=== PATIENT | male | born 1960 | race Caucasian/White ===

== ENCOUNTER → 2016-10-24 | Outpatient (CLI) | payer MEDICARE, OTHER ==
[~2016-10-24] MED LIST: BACT800T5 PO; BUSP30TA PO; BUSP5 PO; CEPH-460 PO; CLON0.5T PO; CLON1TAB PO; DOCU1CAP39 PO; FLUO40CA PO; HYDR-3583 PO; HYDR10SO PO; HYDR7.5T76 PO; LISI-360 PO; LISI-515 PO; PERC10TA27 PO; PERC7.5T13 PO; PROZ40CA PO; ROPI0.5T PO; ZIPR40 PO
--- NOTE | 2016-10-25 09:38 | RSPPFT ---
DATE OF PROCEDURE: 10/24/16 COMMENTS: Spirometry with FVC of 4.3 predicted 47, FEV1 of 2.8 predicted 3.8, FEV1/FVC ratio at 66% predicted 80%. IMPRESSION: On the basis of the above, patient has an obstructive lung defect and post-bronchodilator values have not been measured.
== END ==
LOC: HRSP 08:57
PROVIDERS: ATTEND Thoracic Surgery (Cardiothoracic Vascular Surgery)
DX: J98.4 Other disorders of lung (principal)
CPT/HCPCS: 94010

== ENCOUNTER 2016-11-06 11:22 | Inpatient (IN) | payer MEDICARE, MEDICAID ==
[~2016-11-06] VITALS: Ht 180.3 cm; Wt 68.5 kg
[~2016-11-06 11:22] MED LIST changes: -BACT800T5 PO; -BUSP5 PO; -CEPH-460 PO; -CLON1TAB PO; -DOCU1CAP39 PO; -HYDR10SO PO; -HYDR7.5T76 PO; -LISI-360 PO; -PERC10TA27 PO; -PERC7.5T13 PO; -PROZ40CA PO; -ROPI0.5T PO; -ZIPR40 PO
[2016-11-06] MEDS ORDERED: ROPI0.5T PO (11:51)
[2016-11-12] VITALS (7 sets, daily range): BP systolic 114–167; BP diastolic 61–81; PULSE 68–84; RESP 16–18; TEMP 97.6–98.6; O2SAT 96–98
[2016-11-12] MEDS ORDERED: METOPROLOL TARTRATE 25 MG TAB PO PRN (06:00)
[2016-11-12] MEDS ORDERED: SODIUM CHLORID 0.9% 500 ML IV SCH (06:00)
[2016-11-12] MEDS ORDERED: LACTATED RINGER'S 1000 ML IV SCH (06:00)
[2016-11-12] MEDS ORDERED: INSULIN HUMAN REGULAR 1,000 UNITS/10 ML VIAL SQ PRN (06:00)
[2016-11-12] MEDS ORDERED: PERC10TA27 PO (06:16)
[2016-11-12 07:02] LABS: AUTOMATED NEUTROPHIL # 1.5 TH/MM3 (1.8-7.7); BASOPHIL % 0.5 % (0.0-2.0); EOSINOPHIL # 0.2 TH/MM3 (0-0.4); EOSINOPHIL % 5.9 % (0.0-4.0); HEMATOCRIT 37.1 % (39.0-51.0); LYMPHOCYTE # 1.4 TH/MM3 (1.0-4.8); MEAN CELL VOLUME 93.9 FL (80.0-100.0); MEAN CORPUSCULAR HEMOGLOBIN 33.1 PG (27.0-34.0); MEAN CORPUSCULAR HGB CONC 35.2 % (32.0-36.0); MONO % 11.9 % (0.0-8.0); NEUT % 42.7 % (16.0-70.0); PLATELET COUNT 75 TH/MM3 (150-450); RED BLOOD COUNT 3.95 MIL/MM3 (4.50-5.90); RED CELL DISTRIBUTION WIDTH 13.7 % (11.6-17.2); WHITE BLOOD COUNT 3.6 TH/MM3 (4.0-11.0)
[2016-11-12 07:08] LABS: HEMO FLAGS AUTO DIFF
[2016-11-12] MEDS ORDERED: DICLOFENAC SODIUM 37.5 MG/ML VIAL IV PUSH ONE (07:13)
[2016-11-12] MEDS ORDERED: MIDAZOLAM HCL 2 MG/2 ML VIAL ONE (07:13)
[2016-11-12] MEDS ORDERED: fentaNYL CITRATE 250 MCG/5 ML AMP ONE (07:13)
[2016-11-12] MEDS ORDERED: HYDROmorphone HCL PF 2 MG/ML VIAL ONE (07:14)
[2016-11-12] MEDS ORDERED: DEXAMETHASONE SOD PHOS 4 MG/ML VIAL ONE (07:14)
[2016-11-12] MEDS ORDERED: ceFAZolin 2 GM PREMIX 50 ML ONE (07:33)
[2016-11-12 07:44] LABS: PLATELET ESTIMATE SMEAR LOW (NORMAL); PLATELET MORPHOLOGY NORMAL (NORMAL); SCAN/DIFF AUTO DIFF CONFIRMED
[2016-11-12] MEDS ORDERED: BUPIVACAINE LIPOSO PF 1.3% INJ 20 ML, DEXAMETHASONE INJ 4 MG in SODIUM CHLORIDE 0.9% IN... PERIART SCH (08:00)
[2016-11-12] MEDS ORDERED: PROPOFOL 200 MG/20 ML AMP IV ONE (11:10)
[2016-11-12] MEDS ORDERED: ePHEDrine/NS 50 MG/5 ML SYR IV ONE (11:10)
[2016-11-12] MEDS ORDERED: PHENYLEPH/NS 1000 MCG/10 ML SYR IV ONE ×2 (11:10→12:00)
[2016-11-12] MEDS ORDERED: ONDANSETRON HCL 4 MG/2 ML VIAL IV PUSH ONE (11:10)
[2016-11-12] MEDS ORDERED: LACTATED RINGER'S 1000 ML INJ 1,000 ML IV ONE (11:10)
[2016-11-12] MEDS ORDERED: NEOSTIGMINE 3 MG/3 ML SYR IV ONE (11:10)
[2016-11-12] MEDS ORDERED: NORMOSOL R INJ 1,000 ML IV ONE (11:10)
[2016-11-12] MEDS ORDERED: BUPIVACAINE HCL PF 0.5% 30 ML VIAL INFIL ONE (11:51)
[2016-11-12] MEDS ORDERED: BUPIVACAINE HCL PF 0.5% 30 ML VIAL ONE (11:52)
[2016-11-12] MEDS ORDERED: ceFAZolin INJ 1,000 MG VIAL IV ONE (12:15)
[2016-11-12] MEDS ORDERED: ONDANSETRON HCL 4 MG/2 ML VIAL IV PUSH PRN (12:30)
[2016-11-12] MEDS ORDERED: SODIUM CHLORIDE 0.9% FLUSH 5 ML FLUSH IV FLUSH PRN (12:30)
[2016-11-12] MEDS ORDERED: MAGNESIUM HYDROXIDE SUSP 30 ML CUP PO PRN (12:30)
[2016-11-12] MEDS ORDERED: ACETAMINOPHEN 325 MG TAB PO PRN (12:30)
[2016-11-12] MEDS ORDERED: RESP: ALBUTEROL 2.5 MG/3 ML NEB (PRN) NEB (12:30)
[2016-11-12] MEDS ORDERED: Post-op Orders (for Pharmacy) MISC OTHER ONE (13:00)
[2016-11-12] MEDS ORDERED: DO NOT ADM ANY ANTICOAGULANT DRUGS XX PRN (13:08)
[2016-11-12] MEDS: ACETAMINOPHEN 1000 MG/100 ML VIAL IV SCH ×2 (13:30→19:51)
[2016-11-12] MEDS: KETOROLAC TROMETHAMINE 30 MG/ML (IVP) VIAL IV PUSH SCH ×2 (13:35→19:51)
--- NOTE | 2016-11-12 13:49 | RADRPT ---
EXAM DATE/TIME: 11/12/2016 13:25 [facility] COMPARISON: CT PULMONARY ANGIOGRAM, August 03, 2016, 18:32. CHEST EXPIRATION ONLY, August 06, 2016, 15:17. INDICATIONS : Post-op left thoracotomy. MEDICAL HISTORY : Hypertension. SURGICAL HISTORY : Fusion, cervical. Cholecystectomy. Bilateral knee arthroscopy. ENCOUNTER: Initial ACUITY: 1 day PAIN SCORE: 8/10 LOCATION: chest FINDINGS: The patient is apparently postoperative left thoracotomy with elevation left hemidiaphragm and a smal l amount of subcutaneous emphysema along the left lateral chest. Tubular structure overlies the left hemithorax extending towards the upper lobe apex. Right lung is clear and left lung reveals no eviden ce of pneumothorax and is otherwise clear CONCLUSION: Status post left thoracotomy elevation left hemidiaphragm partial lobectomy with tube in place overly ing the left hemithorax and no pneumothorax appreciated Yann Leon MD on November 12, 2016 at 13:46 Board Certified Radiologist. This report was verified electronically.
[2016-11-12] MEDS: oxyCODONE/ACETAMINOPHEN 5 MG/325 MG TAB PO PRN ×3 (15:11→20:57)
--- NOTE | 2016-11-12 15:19 | PD.OP ---
cc: Ammon Barragan MD; Rekha Sanchez MD Operative Report Date of Surgery: Nov 12, 2016 Preoperative Diagnosis: Postoperative Diagnosis: Procedure: 1. Left Posterolateral Muscle Sparing Thoracotomy 2. Left upper Lobectomy 3. Mediastinal Lymph Node Dissection 4. Intercostal Nerve Block 5. On-Q Pain Pump Placement . Surgeon: Rekha Sanchez Efficiency Miner Blasting(s): Merly Shelby Operation and Findings: PREOPERATIVE DIAGNOSIS 1. Left Upper Lobe Lung Cancer 2. Chronic Nicotine Use POSTOPERATIVE DIAGNOSIS same PROCEDURES 1. Left Posterolateral Muscle Sparing Thoracotomy 2. Left upper Lobectomy 3. Mediastinal Lymph Node Dissection 4. Intercostal Nerve Block 5. On-Q Pain Pump Placement SURGEON Rekha Sanchez MD BOATING SAFETY OFFICER ALMA Quintana RNFA ANESTHESIA General endotracheal. OBSTETRICAL ANESTHESIOLOGIST GAYATHRI Everett MD OPERATIVE TIME Please see record. COMPLICATIONS None. INDICATION FOR PROCEDURE The patient is a 55 yo gentleman with JOSAFAT NSCLC presenting for lobectomy. DESCRIPTION OF PROCEDURE The patient was brought to the operating suite and placed in supine position. Following satisfactory induction of general double-lumen endotracheal anesthesia , the patient was placed in the right lateral decubitus position. The left chest and surrounding area was then prepped and draped in the usual sterile fashion. Initial attempts were made to perform the procedure robotically and camera and 3 additional ports were placed in the 9th ICS. However, there was some issues with the robotic bipolar cautery which could not be resolved and therefore plans were made to convert to a thoracotomy. A standard muscle- sparing posterolateral thoracotomy was performed and the serratus anterior muscle spared. The pleural space was entered. Exploration of the chest revealed large mass in the left upper lobe. Additionally, the tissue was very inflamed and indurated. The inferior pulmonary ligament was divided. The pulmonary arterial supply to the upper lobe was identified, dissected free and divided as was the pulmonary venous supply. The bronchus was then dissected free, clamped and the remaining lung was insufflated without any difficulty. Lymph node dissections of level 5, 6, 7, 8, 9 and 10 were performed along with the course of this removal. Some of these were retained with the specimen. Specimen was removed from the chest. At this point the closure was undertaken. A 24- Taiwanese Morgan drain was placed. Intercostal nerve block was performed at the level of the incision and 3 rib spaces above and below using Exparel with Decadron solution. The pericostal space was approximated with interrupted #1 Vicryl sutures in a pericostal fashion. Two-parallel catheters of On-Q pain pump were placed, one anteriorly and the other posteriorly. The serratus fascia and Latissimus dorsi were closed with running 0-Vicryl and the remaining wounds closed with 3-0, and 4-0 Monocryl. The patient tolerated the procedure well and postoperatively went to the PACU in stable condition. Rekha Sanchez MD Nov 12, 2016 15:19
[2016-11-12] MEDS: SODIUM CHLORIDE 0.9% FLUSH 5 ML FLUSH IV FLUSH SCH (19:52)
[2016-11-12] MEDS: PANTOPRAZOLE SOD 40 MG DELAYED RELEASE TAB PO SCH (19:53)
[2016-11-12] MEDS: DOCUSATE CALCIUM 240 MG CAP PO SCH (19:53)
[2016-11-13] VITALS (22 sets, daily range): BP systolic 106–167; BP diastolic 60–77; PULSE 61–103; RESP 16–28; TEMP 97.6–98.4; O2SAT 95–97
[2016-11-13] MEDS: oxyCODONE/ACETAMINOPHEN 5 MG/325 MG TAB PO PRN ×8 (00:08→21:31)
[2016-11-13] MEDS: ACETAMINOPHEN 1000 MG/100 ML VIAL IV SCH ×2 (01:41→09:23)
[2016-11-13] MEDS: KETOROLAC TROMETHAMINE 30 MG/ML (IVP) VIAL IV PUSH SCH ×2 (01:41→09:23)
[2016-11-13] MEDS: RESP: ALBUTEROL 2.5 MG/3 ML NEB (SCH) NEB ×4 (03:31→20:54)
--- NOTE | 2016-11-13 05:25 | RADRPT ---
EXAM DATE/TIME: 11/13/2016 04:29 [facility] COMPARISON: CHEST SINGLE AP, November 12, 2016, 13:25. INDICATIONS : Shortness of breath. MEDICAL HISTORY : Hypertension. SURGICAL HISTORY : Fusion, cervical. Cholecystectomy. Bilateral knee arthroscopy. ENCOUNTER: Subsequent ACUITY: 2 days PAIN SCORE: Non-responsive. LOCATION: Bilateral chest FINDINGS: Left chest tube remains in place. No pneumothorax. The lungs remain clear and well-aerated. Heart siz e is stable. No pleural effusion. No significant change compared to the prior study. CONCLUSION: No significant interval change. Jimbo An MD on November 13, 2016 at 5:23 Board Certified Radiologist. This report was verified electronically.
[2016-11-13 06:29] LABS: AUTOMATED NEUTROPHIL # 6.7 TH/MM3 (1.8-7.7); BASOPHIL % 0.1 % (0.0-2.0); HEMATOCRIT 38.2 % (39.0-51.0); LYMPH % 16.4 % (9.0-44.0); LYMPHOCYTE # 1.5 TH/MM3 (1.0-4.8); MEAN CELL VOLUME 95.1 FL (80.0-100.0); MEAN CORPUSCULAR HEMOGLOBIN 33.2 PG (27.0-34.0); MEAN CORPUSCULAR HGB CONC 34.9 % (32.0-36.0); MONO % 9.5 % (0.0-8.0); PLATELET COUNT 84 TH/MM3 (150-450); RED BLOOD COUNT 4.01 MIL/MM3 (4.50-5.90); RED CELL DISTRIBUTION WIDTH 13.8 % (11.6-17.2)
[2016-11-13 06:33] LABS: HEMO FLAGS AUTO DIFF
[2016-11-13 07:04] LABS: BICARBONATE 26.5 MEQ/L (21.0-32.0); POTASSIUM 4.4 MEQ/L (3.5-5.1)
[2016-11-13 07:53] LABS: SCAN/DIFF AUTO DIFF CONFIRMED
[2016-11-13 07:54] LABS: HOWELL-JOLLY BODIES PRESENT (NONE SEEN)
[2016-11-13] MEDS: SODIUM CHLORIDE 0.9% FLUSH 5 ML FLUSH IV FLUSH SCH ×2 (09:00→21:32)
[2016-11-13] MEDS: busPIRone HCL 10 MG TAB PO SCH ×2 (11:07→21:31)
[2016-11-13] MEDS: FLUoxetine HCL 20 MG CAP PO SCH (11:07)
--- NOTE | 2016-11-13 11:17 | PD.CAR.PN ---
CVT Progress Note CVT: POD #: 1 Subjective/Hospital Course: 55/ male left upper lobe CA, poorly diff squamous cell pt of Dr Kevin Barragan surgery: , Left Posterolateral Muscle Sparing Thoracotomy, Left upper Lobectomy, Mediastinal Lymph Node Dissection, On-Q Pain Pump Placement 11/12 PMH : tobacco abuse, anxiety depression, polysubstance abuse, schizophrenia , Hep C 11/13 pt on room air , had some serous leakage around chest tube site additional suture placed by Dr Sanchez chest tube to water seal / drained 520cc/ 12 hrs toradol added for pain consult PT Objective: GENERAL: SKIN: Warm and dry./ dressing in place to left chest / additional suture placed at CT site per Dr Sanchez HEAD: Normocephalic. EYES: No scleral icterus. No injection or drainage. NECK: Supple, trachea midline. No JVD or lymphadenopathy. CARDIOVASCULAR: Regular rate and rhythm without murmurs, gallops, or rubs. RESPIRATORY: diminished left upper lobe Breath sounds equal bilaterally. No accessory muscle use. GASTROINTESTINAL: Abdomen soft, non-tender, nondistended. MUSCULOSKELETAL: No cyanosis, or edema. BACK: Nontender without obvious deformity. No CVA tenderness. Vital Signs Date Time Temp Pulse Resp B/P Pulse Ox O2 Delivery O2 Flow Rate FiO2 11/13/16 07:15 97.6 65 20 126/66 97 11/13/16 06:00 66 11/13/16 04:00 98.0 74 16 135/62 97 11/13/16 04:00 70 11/13/16 02:00 61 11/13/16 00:00 62 11/13/16 00:00 98.1 64 16 106/60 97 11/12/16 22:00 75 11/12/16 20:00 84 11/12/16 20:00 98.6 84 16 118/68 96 11/12/16 18:00 78 11/12/16 17:00 71 11/12/16 16:00 72 11/12/16 15:00 97.6 78 18 114/61 97 11/12/16 14:15 97.8 79 17 122/72 98 Nasal Cannula 1.5 11/12/16 14:00 79 17 115/73 98 Nasal Cannula 2 126/60 11/12/16 13:45 75 15 118/72 99 Nasal Cannula 2 125/59 11/12/16 13:30 77 15 149/86 99 Nasal Cannula 2 135/66 11/12/16 13:10 97.6 85 15 129/90 100 Nasal Cannula 3 116/77 Labs: Laboratory Tests Test 11/13/16 05:51 White Blood Count 9.0 TH/MM3 (4.0-11.0) Red Blood Count 4.01 MIL/MM3 (4.50-5.90) Hemoglobin 13.3 GM/DL (13.0-17.0) Hematocrit 38.2 % (39.0-51.0) Mean Corpuscular Volume 95.1 FL (80.0-100.0) Mean Corpuscular Hemoglobin 33.2 PG (27.0-34.0) Mean Corpuscular Hemoglobin 34.9 % Concent (32.0-36.0) Red Cell Distribution Width 13.8 % (11.6-17.2) Platelet Count 84 TH/MM3 (150-450) Mean Platelet Volume 10.0 FL (7.0-11.0) Neutrophils (%) (Auto) 74.0 % (16.0-70.0) Lymphocytes (%) (Auto) 16.4 % (9.0-44.0) Monocytes (%) (Auto) 9.5 % (0.0-8.0) Eosinophils (%) (Auto) 0.0 % (0.0-4.0) Basophils (%) (Auto) 0.1 % (0.0-2.0) Neutrophils # (Auto) 6.7 TH/MM3 (1.8-7.7) Lymphocytes # (Auto) 1.5 TH/MM3 (1.0-4.8) Monocytes # (Auto) 0.9 TH/MM3 (0-0.9) Eosinophils # (Auto) 0.0 TH/MM3 (0-0.4) Basophils # (Auto) 0.0 TH/MM3 (0-0.2) CBC Comment AUTO DIFF Differential Comment AUTO DIFF CONFIRMED [place] Bodies PRESENT (NONE SEEN) Sodium Level 138 MEQ/L (136-145) Potassium Level 4.4 MEQ/L (3.5-5.1) Chloride Level 106 MEQ/L (98-107) Carbon Dioxide Level 26.5 MEQ/L (21.0-32.0) Anion Gap 6 MEQ/L (5-15) Blood Urea Nitrogen 18 MG/DL (7-18) Creatinine 0.84 MG/DL (0.60-1.30) Estimat Glomerular Filtration 95 ML/MIN (>89) Rate Random Glucose 102 MG/DL (74-106) Calcium Level 8.1 MG/DL (8.5-10.1) Result Diagram: 11/13/1651 11/13/1651 Telemetry: NSR (1) Substance abuse (2) Schizophrenia Plan: resume home meds (3) s/p left muscle sparing thoracotomy Plan: continue pulm toileting nebs, ezpap chest tube to water seal ambulate (4) Lung mass Plan: await path Herlinda Hu Nov 13, 2016 11:17
[2016-11-13] MEDS: LISINOPRIL 5 MG TAB PO SCH (11:44)
[2016-11-13] MEDS: clonazePAM 0.5 MG TAB PO PRN ×2 (12:26→22:39)
[2016-11-13] MEDS: PANTOPRAZOLE SOD 40 MG DELAYED RELEASE TAB PO SCH (21:31)
[2016-11-13] MEDS: DOCUSATE CALCIUM 240 MG CAP PO SCH (21:31)
[2016-11-13] MEDS: KETOROLAC TROMETHAMINE 30 MG/ML (IVP) VIAL IV PUSH PRN (21:49)
[2016-11-14] VITALS (25 sets, daily range): BP systolic 121–165; BP diastolic 63–80; PULSE 80–96; RESP 18–22; TEMP 97.9–99.5; O2SAT 96–98
[2016-11-14] MEDS: oxyCODONE/ACETAMINOPHEN 5 MG/325 MG TAB PO PRN ×7 (00:44→20:24)
[2016-11-14] MEDS: RESP: ALBUTEROL 2.5 MG/3 ML NEB (SCH) NEB ×4 (03:30→20:59)
--- NOTE | 2016-11-14 05:27 | RADRPT ---
EXAM DATE/TIME: 11/14/2016 04:49 [facility] COMPARISON: CHEST SINGLE AP, November 13, 2016, 4:29. INDICATIONS : Shortness of breath, possible pulmonary disease. MEDICAL HISTORY : Hypertension. SURGICAL HISTORY : Fusion, cervical. Cholecystectomy. Bilateral knee arthroplasty ENCOUNTER: Subsequent ACUITY: 3 days PAIN SCORE: Non-responsive. LOCATION: Bilateral chest FINDINGS: The left chest tube remains in place. No definite pneumothorax. The lungs are clear and well-aerated. No pleural effusions. The heart size is within normal limits. The bony structures are stable. CONCLUSION: No evidence of pneumothorax. Lungs are grossly clear. Jimbo An MD on November 14, 2016 at 5:25 Board Certified Radiologist. This report was verified electronically.
[2016-11-14] MEDS: clonazePAM 0.5 MG TAB PO PRN (07:32)
[2016-11-14] MEDS: SODIUM CHLORIDE 0.9% FLUSH 5 ML FLUSH IV FLUSH SCH (08:07)
[2016-11-14] MEDS: FLUoxetine HCL 20 MG CAP PO SCH (08:07)
[2016-11-14] MEDS: LISINOPRIL 5 MG TAB PO SCH (08:07)
[2016-11-14] MEDS: busPIRone HCL 10 MG TAB PO SCH ×2 (08:07→20:24)
[2016-11-14] MEDS ORDERED: LISINOPRIL 10 MG TAB PO ONE (09:00)
[2016-11-14] MEDS: KETOROLAC TROMETHAMINE 30 MG/ML (IVP) VIAL IV PUSH PRN ×2 (09:13→16:19)
--- NOTE | 2016-11-14 10:51 | HHI.FF ---
Face to Face Verification Diagnosis: (1) Lung mass (2) Schizophrenia (3) s/p left muscle sparing thoracotomy Home Health Nursing Order: Signs/symptoms of disease process Wound care and dressing changes Instructions: Incentive spirometry Q1 hr x 10, while awake, also use acapella device hourly whole awake Chest wall Precautions: NO pushing or pulling, ( pt must use chest pillow to support chest with all activities and with coughing Daily incision care: ok to shower daily, no tub bath. Wash all incisions with liquid dial soap, clean wash cloth to each site, rinse and pat dry. Observe for any signs of infection, such as drainage which is dark yellow, moscos[place], green or foul smelling. Immediately report to the surgeon any drainage from the chest incision, or legs, and for any abnormal drainage from the chest tube sites. Notify surgeon if any temp >101.5 degrees F. When specialty dressing removed/ or if you do not have one, continue to shower daily as above, then rinse and pat incision dry and paint with betadine daily x 5 days. Allow steri strips to fall off if you have any. Avoid lotions, creams, salves, oils, etc. for the first month F/U appointment: as per [facility] instructions: PCP in 2 weeks, CV surgeon 2 weeks, oncologist 3-4 weeks For any questions regarding incisions/ dressing / meds / post op care or above Symptoms, Friday 8am-5pm Heart & Vascular Surgery Office ( Dr. Sanchez & Dr. Seaman), After Hours / Nights (5pm -8am) Weekends and Holidays Please call [facility] ([facility]) Charge Nurse I have seen patient Blayne Ac on 11/14/16. My clinical findings support the need for the requested home health care services because: Patient has SOB Deconditioned w/ increased weakness I certify that my clinical findings support that this patient is homebound because: Post-op weakness Herlinda Hu Nov 14, 2016 10:51
--- NOTE | 2016-11-14 10:58 | PD.CAR.PN ---
CVT Progress Note CVT: POD #: 2 Subjective/Hospital Course: 55/ male left upper lobe CA, poorly diff squamous cell pt of Dr Kevin Barragan surgery: , Left Posterolateral Muscle Sparing Thoracotomy, Left upper Lobectomy, Mediastinal Lymph Node Dissection, On-Q Pain Pump Placement 11/12 PMH : tobacco abuse, anxiety depression, polysubstance abuse, schizophrenia , Hep C 11/13 pt on room air , had some serous leakage around chest tube site additional suture placed by Dr Sanchez chest tube to water seal / drained 520cc/ 12 hrs toradol added for pain consult PT 11/14 still having some breakthrough pain will added prn ofirmev x 4 doses continue aggressive pulm toileting add additinal GI motility meds CT has small intermittent air leak , drained 110cc/ 12 hrs CXR shows no evidence of PTX Objective: GENERAL: SKIN: Warm and dry./ dressing to left chest wall, incision left posterior chest wall intact and well approximated HEAD: Normocephalic. EYES: No scleral icterus. No injection or drainage. NECK: Supple, trachea midline. No JVD or lymphadenopathy. CARDIOVASCULAR: Regular rate and rhythm without murmurs, gallops, or rubs. RESPIRATORY: Breath sounds equal bilaterally. No accessory muscle use. diminished left upper lobe GASTROINTESTINAL: Abdomen soft, non-tender, nondistended. MUSCULOSKELETAL: No cyanosis, or edema. BACK: Nontender without obvious deformity. No CVA tenderness. Vital Signs Date Time Temp Pulse Resp B/P Pulse Ox O2 Delivery O2 Flow Rate FiO2 11/14/16 08:32 18 11/14/16 06:00 85 11/14/16 05:00 83 11/14/16 04:00 82 11/14/16 03:00 97.9 84 22 154/75 98 11/14/16 03:00 83 11/14/16 02:00 84 11/14/16 01:00 81 11/14/16 00:00 83 11/13/16 23:00 87 11/13/16 23:00 98.4 88 24 134/68 96 Arterial Line 11/13/16 22:00 89 11/13/16 21:00 90 11/13/16 20:00 90 11/13/16 19:00 98.4 92 28 139/67 95 11/13/16 19:00 86 11/13/16 18:00 103 11/13/16 17:00 82 11/13/16 16:00 80 11/13/16 15:00 98.0 75 19 134/64 97 11/13/16 15:00 84 11/13/16 14:00 72 11/13/16 13:00 75 11/13/16 12:00 78 11/13/16 11:00 97.9 81 20 167/77 97 11/13/16 11:00 83 Result Diagram: 11/13/16 0551 11/13/16 0551 Telemetry: NSR (1) Substance abuse (2) Schizophrenia Plan: resume home meds (3) s/p left muscle sparing thoracotomy Plan: continue pulm toileting nebs, ezpap chest tube to water seal leave chest tube in place for now pain control ambulate (4) Lung mass Plan: await path Herlinda Hu Nov 14, 2016 10:58
[2016-11-14] MEDS ORDERED: ACETAMINOPHEN 1000 MG/100 ML VIAL IV PRN (11:00)
[2016-11-14] MEDS: DOCUSATE SODIUM 100 MG CAP PO SCH ×2 (11:34→20:24)
[2016-11-14] MEDS: POLYETHYLENE GLYCOL 17 GM PKG PO SCH (11:34)
[2016-11-14] MEDS: PANTOPRAZOLE SOD 40 MG DELAYED RELEASE TAB PO SCH (20:23)
[2016-11-14] MEDS: SENNOSIDES 8.6 MG TAB PO SCH (20:24)
[2016-11-15] VITALS (26 sets, daily range): BP systolic 131–183; BP diastolic 62–95; PULSE 75–96; RESP 16–20; TEMP 97.7–100.2; O2SAT 95–99
[2016-11-15] MEDS: oxyCODONE/ACETAMINOPHEN 5 MG/325 MG TAB PO PRN ×6 (00:07→16:56)
[2016-11-15] MEDS: RESP: ALBUTEROL 2.5 MG/3 ML NEB (SCH) NEB ×3 (04:00→17:27)
[2016-11-15] MEDS: SODIUM CHLORIDE 0.9% FLUSH 5 ML FLUSH IV FLUSH SCH ×3 (04:38→20:32)
[2016-11-15] MEDS: KETOROLAC TROMETHAMINE 30 MG/ML (IVP) VIAL IV PUSH PRN ×2 (04:38→10:27)
--- NOTE | 2016-11-15 04:57 | RADRPT ---
EXAM DATE/TIME: 11/15/2016 04:13 [facility] COMPARISON: CHEST SINGLE AP, November 14, 2016, 4:49. INDICATIONS : Status post thoracotomy. MEDICAL HISTORY : Hypertension. SURGICAL HISTORY : Fusion, cervical. Cholecystectomy. Bilateral knee arthroplasty ENCOUNTER: Subsequent ACUITY: 4 - 6 days PAIN SCORE: Non-responsive. LOCATION: chest FINDINGS: A left-sided chest tube is noted and moderate subcutaneous emphysema along the left chest and neck ag ain seen. There is elevation of left hemidiaphragm present. I do not see a pneumothorax. Right and le ft lungs are clear. Heart size prominent. ACDF hardware overlies the cervical spine. CONCLUSION: No significant change has occurred. Greg Patel MD on November 15, 2016 at 4:55 Board Certified Radiologist. This report was verified electronically.
[2016-11-15] MEDS: FLUoxetine HCL 20 MG CAP PO SCH (07:58)
[2016-11-15] MEDS: POLYETHYLENE GLYCOL 17 GM PKG PO SCH (07:59)
[2016-11-15] MEDS: busPIRone HCL 10 MG TAB PO SCH ×2 (07:59→20:31)
[2016-11-15] MEDS: DOCUSATE SODIUM 100 MG CAP PO SCH ×3 (07:59→20:38)
[2016-11-15] MEDS: LISINOPRIL 20 MG TAB PO SCH (07:59)
[2016-11-15] MEDS: clonazePAM 0.5 MG TAB PO PRN (08:05)
[2016-11-15] MEDS ORDERED: BISACODYL 10 MG SUPP RECTAL ONE (10:00)
--- NOTE | 2016-11-15 11:05 | PD.CAR.PN ---
CVT Progress Note CVT: POD #: 3 Subjective/Hospital Course: 55/ male left upper lobe CA, poorly diff squamous cell pt of Dr Kevin Barragan surgery: , Left Posterolateral Muscle Sparing Thoracotomy, Left upper Lobectomy, Mediastinal Lymph Node Dissection, On-Q Pain Pump Placement 11/12 PMH : tobacco abuse, anxiety depression, polysubstance abuse, schizophrenia , Hep C 11/13 pt on room air , had some serous leakage around chest tube site additional suture placed by Dr Sanchez chest tube to water seal / drained 520cc/ 12 hrs toradol added for pain consult PT 11/14 still having some breakthrough pain will added prn ofirmev x 4 doses continue aggressive pulm toileting add additinal GI motility meds CT has small intermittent air leak , drained 110cc/ 12 hrs CXR shows no evidence of PTX 11/15 CXR no evidence of PTX, no further air leak noted plan is to ambualte, then dc Chest tube, dc home in am f/u CXR in am Objective: GENERAL: SKIN: Warm and dry./ dressing with onq pump left chest wall HEAD: Normocephalic. EYES: No scleral icterus. No injection or drainage. NECK: Supple, trachea midline. No JVD or lymphadenopathy. CARDIOVASCULAR: Regular rate and rhythm without murmurs, gallops, or rubs. RESPIRATORY: diminished in bases L>R No accessory muscle use. GASTROINTESTINAL: Abdomen soft, non-tender, nondistended. MUSCULOSKELETAL: No cyanosis, or edema. BACK: Nontender without obvious deformity. No CVA tenderness. Vital Signs Date Time Temp Pulse Resp B/P Pulse Ox O2 Delivery O2 Flow Rate FiO2 11/15/16 08:59 18 11/15/16 08:00 97.9 82 18 182/84 99 11/15/16 07:01 78 11/15/16 06:00 82 11/15/16 05:14 157/76 11/15/16 05:00 81 11/15/16 04:00 82 11/15/16 04:00 98.6 87 18 168/79 96 11/15/16 03:00 81 11/15/16 02:00 84 11/15/16 01:00 84 11/15/16 00:00 89 11/15/16 00:00 97.7 89 20 151/73 97 11/14/16 23:00 88 11/14/16 22:00 87 11/14/16 21:00 87 11/14/16 20:00 98.6 88 20 152/76 97 11/14/16 20:00 86 11/14/16 19:00 86 11/14/16 17:19 18 11/14/16 17:00 84 11/14/16 16:00 92 11/14/16 16:00 99.5 80 18 121/63 97 11/14/16 15:00 83 11/14/16 14:00 82 11/14/16 13:00 83 11/14/16 12:03 85 11/14/16 12:00 98.2 87 18 141/72 96 11/14/16 11:00 86 Result Diagram: 11/13/16 0551 11/13/16 0551 Telemetry: NSR Plan: plan for dc in am (1) Substance abuse (2) Schizophrenia Plan: resume home meds (3) s/p left muscle sparing thoracotomy Plan: continue pulm toileting nebs, ezpap plan to dc chest tube subq air, unchanged pain control ambulate gi motility meds given (4) Lung mass Plan: path : poorly differentiated squamous cell carcinoma lymph nodes neg for malignancy pT2a pNO Herlinda Hu Nov 15, 2016 11:05
[2016-11-15] MEDS ORDERED: DOCU1CAP39 PO (12:56)
[2016-11-15] MEDS: PANTOPRAZOLE SOD 40 MG DELAYED RELEASE TAB PO SCH (20:32)
[2016-11-15] MEDS: SENNOSIDES 8.6 MG TAB PO SCH (20:32)
[2016-11-16] VITALS (26 sets, daily range): BP systolic 117–177; BP diastolic 62–91; PULSE 73–87; RESP 16–20; TEMP 97.6–98.5; O2SAT 93–97
[2016-11-16] MEDS: RESP: ALBUTEROL 2.5 MG/3 ML NEB (SCH) NEB ×3 (03:23→15:18)
--- NOTE | 2016-11-16 04:27 | RADRPT ---
EXAM DATE/TIME: 11/16/2016 03:45 [facility] COMPARISON: CHEST SINGLE AP, November 15, 2016, 4:13. INDICATIONS : Shortness of breath, possible pulmonary disease. MEDICAL HISTORY : Hypertension. SURGICAL HISTORY : Fusion, cervical. Cholecystectomy. Bilateral knee arthroplasty ENCOUNTER: Subsequent ACUITY: 4 - 6 days PAIN SCORE: Non-responsive. LOCATION: Bilateral chest FINDINGS: Subcutaneous emphysema left chest and neck again noted with a left-sided chest tube again seen. I do not see a pneumothorax. The lungs are clear. ACDF hardware overlies the cervical spine. CONCLUSION: No significant change has occurred. Greg Patel MD on November 16, 2016 at 4:25 Board Certified Radiologist. This report was verified electronically.
[2016-11-16] MEDS: SODIUM CHLORIDE 0.9% FLUSH 5 ML FLUSH IV FLUSH SCH ×2 (08:08→21:00)
[2016-11-16] MEDS: DOCUSATE SODIUM 100 MG CAP PO SCH ×2 (08:10→20:02)
[2016-11-16] MEDS: POLYETHYLENE GLYCOL 17 GM PKG PO SCH (08:10)
[2016-11-16] MEDS: LISINOPRIL 20 MG TAB PO SCH (08:10)
[2016-11-16] MEDS: busPIRone HCL 10 MG TAB PO SCH ×2 (08:11→20:02)
[2016-11-16] MEDS: FLUoxetine HCL 20 MG CAP PO SCH (08:11)
[2016-11-16] MEDS: oxyCODONE/ACETAMINOPHEN 5 MG/325 MG TAB PO PRN ×5 (08:15→21:43)
[2016-11-16] MEDS: clonazePAM 0.5 MG TAB PO PRN ×2 (08:15→21:43)
--- NOTE | 2016-11-16 10:16 | PD.CAR.PN ---
CVT Progress Note CVT: POD #: 4 Subjective/Hospital Course: 55/ male left upper lobe CA, poorly diff squamous cell pt of Dr Kevin Barragan surgery: , Left Posterolateral Muscle Sparing Thoracotomy, Left upper Lobectomy, Mediastinal Lymph Node Dissection, On-Q Pain Pump Placement 11/12 PMH : tobacco abuse, anxiety depression, polysubstance abuse, schizophrenia , Hep C 11/13 pt on room air , had some serous leakage around chest tube site additional suture placed by Dr Sanchez chest tube to water seal / drained 520cc/ 12 hrs toradol added for pain consult PT 11/14 still having some breakthrough pain will added prn ofirmev x 4 doses continue aggressive pulm toileting add additinal GI motility meds CT has small intermittent air leak , drained 110cc/ 12 hrs CXR shows no evidence of PTX 11/15 CXR no evidence of PTX, no further air leak noted plan is to ambualte, then dc Chest tube, dc home in am f/u CXR in am 11/16/16 Chest tube drainage 130ml/3 hrs this morning. He had ~120ml last night. He has no complaints otherwise. Objective: Vital Signs Date Time Temp Pulse Resp B/P Pulse Ox O2 Delivery O2 Flow Rate FiO2 11/16/16 10:00 81 11/16/16 09:00 82 11/16/16 08:58 93 21 11/16/16 08:00 81 11/16/16 07:00 76 11/16/16 07:00 98.2 83 20 170/86 95 11/16/16 06:00 75 11/16/16 05:00 74 11/16/16 04:00 76 11/16/16 03:45 98.0 79 16 175/91 96 11/16/16 03:00 76 11/16/16 02:00 80 11/16/16 01:00 80 11/16/16 00:00 81 11/15/16 23:00 99.0 83 16 131/62 95 11/15/16 23:00 83 11/15/16 22:00 84 11/15/16 21:00 92 11/15/16 20:45 94 152/72 11/15/16 20:00 94 11/15/16 20:00 100.2 96 18 183/93 98 11/15/16 19:00 96 11/15/16 17:00 82 11/15/16 16:01 80 11/15/16 16:00 98.5 83 16 166/95 96 11/15/16 15:00 77 11/15/16 14:53 18 11/15/16 14:00 80 11/15/16 13:00 80 11/15/16 12:07 80 11/15/16 12:00 97.9 75 18 158/79 98 Result Diagram: 11/13/16 0551 11/13/16 0551 Imaging: Last Impressions Chest X-Ray 11/16/16 0600 Signed Impressions: Service Date/Time: Wednesday, November 16, 2016 03:45 - CONCLUSION: No significant change has occurred. Greg Patel MD Cardiovascular: RRR Telemetry: NSR Pulmonary: CTA GI/: NABS, NT Incision: dry and intact CT: 130ml in last 3 hours. No air leak Plan: Will keep chest tube one more day due to increased drainage. 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
[2016-11-16] MEDS: SENNOSIDES 8.6 MG TAB PO SCH (20:02)
[2016-11-16] MEDS: PANTOPRAZOLE SOD 40 MG DELAYED RELEASE TAB PO SCH (20:02)
[2016-11-17] VITALS (24 sets, daily range): BP systolic 120–158; BP diastolic 64–79; PULSE 61–90; RESP 18–20; TEMP 97.6–98.2; O2SAT 95–98
[2016-11-17] MEDS: oxyCODONE/ACETAMINOPHEN 5 MG/325 MG TAB PO PRN ×8 (01:57→23:57)
[2016-11-17] MEDS: POLYETHYLENE GLYCOL 17 GM PKG PO SCH (08:13)
[2016-11-17] MEDS: SODIUM CHLORIDE 0.9% FLUSH 5 ML FLUSH IV FLUSH SCH ×2 (08:13→20:54)
[2016-11-17] MEDS: LISINOPRIL 20 MG TAB PO SCH (08:14)
[2016-11-17] MEDS: DOCUSATE SODIUM 100 MG CAP PO SCH ×2 (08:14→20:54)
[2016-11-17] MEDS: busPIRone HCL 10 MG TAB PO SCH ×2 (08:14→20:54)
[2016-11-17] MEDS: clonazePAM 0.5 MG TAB PO PRN ×2 (08:17→16:23)
[2016-11-17] MEDS: FLUoxetine HCL 20 MG CAP PO SCH (10:10)
--- NOTE | 2016-11-17 11:06 | PD.CAR.PN ---
CVT Progress Note CVT: POD #: 5 Subjective/Hospital Course: 55/ male left upper lobe CA, poorly diff squamous cell pt of Dr Kevin Barragan surgery: , Left Posterolateral Muscle Sparing Thoracotomy, Left upper Lobectomy, Mediastinal Lymph Node Dissection, On-Q Pain Pump Placement 11/12 PMH : tobacco abuse, anxiety depression, polysubstance abuse, schizophrenia , Hep C 11/13 pt on room air , had some serous leakage around chest tube site additional suture placed by Dr Sanchez chest tube to water seal / drained 520cc/ 12 hrs toradol added for pain consult PT 11/14 still having some breakthrough pain will added prn ofirmev x 4 doses continue aggressive pulm toileting add additinal GI motility meds CT has small intermittent air leak , drained 110cc/ 12 hrs CXR shows no evidence of PTX 11/15 CXR no evidence of PTX, no further air leak noted plan is to ambualte, then dc Chest tube, dc home in am f/u CXR in am 11/16/16 Chest tube drainage 130ml/3 hrs this morning. He had ~120ml last night. He has no complaints otherwise. 11/17/16 continues with copious chest tube output - serous otherwise, c/o incisional pain Objective: Vital Signs Date Time Temp Pulse Resp B/P Pulse Ox O2 Delivery O2 Flow Rate FiO2 11/17/16 10:00 78 11/17/16 09:00 71 11/17/16 08:00 90 11/17/16 07:00 97.6 72 18 158/79 97 11/17/16 07:00 70 11/17/16 06:01 22 11/17/16 06:00 71 11/17/16 05:00 73 11/17/16 04:17 22 11/17/16 04:00 74 11/17/16 03:00 76 11/17/16 03:00 97.8 74 18 131/67 96 11/17/16 02:00 73 11/17/16 01:00 73 11/17/16 00:00 79 11/16/16 23:00 78 11/16/16 23:00 98.0 77 18 117/62 96 11/16/16 22:00 78 11/16/16 21:00 75 11/16/16 20:00 79 11/16/16 19:00 79 11/16/16 19:00 98.5 79 18 149/79 96 11/16/16 18:00 83 11/16/16 17:00 82 11/16/16 16:00 83 11/16/16 15:00 73 11/16/16 15:00 98.3 76 17 144/71 97 11/16/16 14:00 76 11/16/16 13:00 77 11/16/16 12:00 80 Result Diagram: 11/13/16 0551 11/13/16 0551 Cardiovascular: RRR Telemetry: NSR Pulmonary: CTA GI/: NABS, NT Incision: dry and intact CT: 160ml/4 hours 120 ml last night No air leak Plan: Leave chest tubes to water seal Encourage ambulation (1) Substance abuse (2) Schizophrenia Plan: resume home meds (3) s p left muscle sparing thoracotomy Plan: continue pulm toileting nebs, ezpap plan to dc chest tube subq air, unchanged pain control ambulate gi motility meds given (4) Lung mass Plan: path : 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
[2016-11-17] MEDS: SENNOSIDES 8.6 MG TAB PO SCH (20:54)
[2016-11-17] MEDS: PANTOPRAZOLE SOD 40 MG DELAYED RELEASE TAB PO SCH (20:54)
[2016-11-18] VITALS (29 sets, daily range): BP systolic 107–138; BP diastolic 58–70; PULSE 67–83; RESP 16–18; TEMP 97.6–98.7; O2SAT 94–97
[2016-11-18] MEDS: oxyCODONE/ACETAMINOPHEN 5 MG/325 MG TAB PO PRN ×6 (03:50→22:06)
[2016-11-18] MEDS: FLUoxetine HCL 20 MG CAP PO SCH (08:41)
[2016-11-18] MEDS: DOCUSATE SODIUM 100 MG CAP PO SCH ×2 (08:41→21:09)
[2016-11-18] MEDS: LISINOPRIL 20 MG TAB PO SCH (08:41)
[2016-11-18] MEDS: POLYETHYLENE GLYCOL 17 GM PKG PO SCH (08:41)
[2016-11-18] MEDS: SODIUM CHLORIDE 0.9% FLUSH 5 ML FLUSH IV FLUSH SCH ×2 (08:41→21:09)
[2016-11-18] MEDS: clonazePAM 0.5 MG TAB PO PRN ×3 (09:04→18:40)
[2016-11-18] MEDS: busPIRone HCL 10 MG TAB PO SCH ×2 (09:04→21:09)
--- NOTE | 2016-11-18 10:49 | PD.CAR.PN ---
CVT Progress Note Subjective/Hospital Course: possible dc in am 55/ male left upper lobe CA, poorly diff squamous cell pt of Dr Kevin Barragan surgery: , Left Posterolateral Muscle Sparing Thoracotomy, Left upper Lobectomy, Mediastinal Lymph Node Dissection, On-Q Pain Pump Placement 11/12 PMH : tobacco abuse, anxiety depression, polysubstance abuse, schizophrenia , Hep C 11/13 pt on room air , had some serous leakage around chest tube site additional suture placed by Dr Sanchez chest tube to water seal / drained 520cc/ 12 hrs toradol added for pain consult PT 11/14 still having some breakthrough pain will added prn ofirmev x 4 doses continue aggressive pulm toileting add additinal GI motility meds CT has small intermittent air leak , drained 110cc/ 12 hrs CXR shows no evidence of PTX 11/15 CXR no evidence of PTX, no further air leak noted plan is to ambualte, then dc Chest tube, dc home in am f/u CXR in am 11/16/16 Chest tube drainage 130ml/3 hrs this morning. He had ~120ml last night. He has no complaints otherwise. 11/17/16 continues with copious chest tube output - serous otherwise, c/o incisional pain 11/18 chest tube 170cc/ 12 hr, minimal drainage this am eval for removal today and removal of onQ pump Decadron x 1 dose Objective: GENERAL: SKIN: Warm and dry. HEAD: Normocephalic. EYES: No scleral icterus. No injection or drainage. NECK: Supple, trachea midline. No JVD or lymphadenopathy. CARDIOVASCULAR: Regular rate and rhythm without murmurs, gallops, or rubs. RESPIRATORY: diminished left upper lobe chest tube to water seal, no iar leak Breath sounds equal bilaterally. No accessory muscle use. GASTROINTESTINAL: Abdomen soft, non-tender, nondistended. MUSCULOSKELETAL: No cyanosis, or edema. BACK: Nontender without obvious deformity. No CVA tenderness. Vital Signs Date Time Temp Pulse Resp B/P Pulse Ox O2 Delivery O2 Flow Rate FiO2 11/18/16 07:38 98.7 72 16 107/59 96 11/18/16 07:00 72 11/18/16 06:00 72 11/18/16 05:00 73 11/18/16 04:50 22 11/18/16 04:00 73 11/18/16 03:41 18 11/18/16 03:00 71 11/18/16 03:00 97.8 74 18 114/62 97 11/18/16 02:00 83 11/18/16 01:00 73 11/18/16 00:00 74 11/17/16 23:00 97.6 80 20 137/67 96 11/17/16 23:00 73 11/17/16 22:00 73 11/17/16 21:00 80 11/17/16 20:00 70 11/17/16 19:00 72 11/17/16 19:00 97.6 76 20 128/69 95 11/17/16 18:00 71 11/17/16 17:00 69 11/17/16 16:00 74 11/17/16 15:00 72 11/17/16 15:00 97.7 69 18 120/64 97 11/17/16 14:00 67 11/17/16 13:00 70 11/17/16 12:00 75 11/17/16 11:00 61 11/17/16 11:00 98.2 82 18 136/66 98 (1) Substance abuse (2) Schizophrenia Plan: home meds (3) s p left muscle sparing thoracotomy Plan: continue pulm toileting nebs, ezpap plan to dc chest tube subq air, improved pain control ambulate chest tube and on Q pump cath removed, without difficulty f/u CXR dc in am (4) Lung mass Plan: path : poorly differentiated squamous cell carcinoma lymph nodes neg for malignancy pT2a pNO Herlinda Hu Nov 18, 2016 10:49
[2016-11-18] MEDS ORDERED: DEXAMETHASONE SOD PHOS 4 MG/ML VIAL IV PUSH ONE (11:00)
[2016-11-18] MEDS: PANTOPRAZOLE SOD 40 MG DELAYED RELEASE TAB PO SCH (21:09)
[2016-11-18] MEDS: SENNOSIDES 8.6 MG TAB PO SCH (21:09)
[2016-11-19] VITALS (11 sets, daily range): BP systolic 135–154; BP diastolic 68–70; PULSE 58–64; RESP 15–18; TEMP 97.8–97.9; O2SAT 98
[2016-11-19] MEDS: oxyCODONE/ACETAMINOPHEN 5 MG/325 MG TAB PO PRN ×4 (01:04→10:57)
--- NOTE | 2016-11-19 06:16 | RADRPT ---
EXAM DATE/TIME: 11/19/2016 05:45 [facility] COMPARISON: CHEST SINGLE AP, November 16, 2016, 3:45. INDICATIONS : Post chest tube removal. MEDICAL HISTORY : Hypertension. SURGICAL HISTORY : Fusion, cervical. Cholecystectomy. Bilateral knee arthroplasty. ENCOUNTER: Subsequent ACUITY: 1 week PAIN SCORE: 0/10 LOCATION: Bilateral chest FINDINGS: Left chest tube out. No pneumothorax seen. Left chest wall emphysema persists but has decreased sligh tly in the interim. Right lung remains clear. CONCLUSION: Left chest tube removed. No pneumothorax seen. Lb Green MD on November 19, 2016 at 6:13 Board Certified Radiologist. This report was verified electronically.
[2016-11-19] MEDS: FLUoxetine HCL 20 MG CAP PO SCH (07:58)
[2016-11-19] MEDS: POLYETHYLENE GLYCOL 17 GM PKG PO SCH (07:58)
[2016-11-19] MEDS: busPIRone HCL 10 MG TAB PO SCH (07:58)
[2016-11-19] MEDS: LISINOPRIL 20 MG TAB PO SCH (07:58)
[2016-11-19] MEDS: DOCUSATE SODIUM 100 MG CAP PO SCH ×2 (07:58→08:06)
[2016-11-19] MEDS: SODIUM CHLORIDE 0.9% FLUSH 5 ML FLUSH IV FLUSH SCH (07:59)
--- NOTE | 2016-11-19 09:50 | HHI.DS ---
Discharge Summary Admission Date Nov 12, 2016 at 05:31 Discharge Date: Nov 19, 2016 Admitting Diagnosis left lung mass/ hx hx poorly differentiated squamous cell lung ca (1) Lung mass Diagnosis: Principal (2) s p left muscle sparing thoracotomy Diagnosis: Secondary (3) Lung nodule Diagnosis: Principal Procedures 11/12 Left Posterolateral Muscle Sparing Thoracotomy, Left upper Lobectomy, Mediastinal Lymph Node Dissection, Intercostal Nerve Block, On-Q Pain Pump Placement Brief History possible dc in am 55/ male left upper lobe CA, poorly diff squamous cell pt of Dr Kevin Barragan surgery: , Left Posterolateral Muscle Sparing Thoracotomy, Left upper Lobectomy, Mediastinal Lymph Node Dissection, On-Q Pain Pump Placement 11/12 PMH : tobacco abuse, anxiety depression, polysubstance abuse, schizophrenia , Hep C Imaging Last Impressions Chest X-Ray 11/19/16 0600 Signed Impressions: Service Date/Time: Saturday, November 19, 2016 05:45 - CONCLUSION: Left chest tube removed. No pneumothorax seen. Lb Green MD PE at Discharge GENERAL: SKIN: Warm and dry. HEAD: Normocephalic. EYES: No scleral icterus. No injection or drainage. NECK: Supple, trachea midline. No JVD or lymphadenopathy. CARDIOVASCULAR: Regular rate and rhythm without murmurs, gallops, or rubs. RESPIRATORY: diminished left upper lobe dressing to left chest wall changed, saturated with serous drainage, vaseline gauze in place No accessory muscle use. GASTROINTESTINAL: Abdomen soft, non-tender, nondistended. MUSCULOSKELETAL: No cyanosis, or edema. BACK: Nontender without obvious deformity. No CVA tenderness. Hospital Course /25 pt on room air , had some serous leakage around chest tube site additional suture placed by Dr Sanchez chest tube to water seal / drained 520cc/ 12 hrs toradol added for pain consult PT 11/14 still having some breakthrough pain will added prn ofirmev x 4 doses continue aggressive pulm toileting add additinal GI motility meds CT has small intermittent air leak , drained 110cc/ 12 hrs CXR shows no evidence of PTX 11/15 CXR no evidence of PTX, no further air leak noted plan is to ambualte, then dc Chest tube, dc home in am f/u CXR in am 11/16/16 Chest tube drainage 130ml/3 hrs this morning. He had ~120ml last night. He has no complaints otherwise. 11/17/16 continues with copious chest tube output - serous otherwise, c/o incisional pain 11/18 chest tube 170cc/ 12 hr, minimal drainage this am eval for removal today and removal of onQ pump Decadron x 1 dose 11/19 CXR noted, no PTX after chest tube removal yesterday on room air dressing saturated with serous drainage, nursing to change dressing today , then dc home with post instructions and [facility] Pt Condition on Discharge: Good Discharge Disposition: Disch w/ Home Health Serv Discharge Instructions DIET: Follow Instructions for: As Tolerated, No Restrictions Activities you can perform: Full Weight Bearing, Shower Only-No Bath Activities to avoid: Lifting/Bending, Strenuous Activity, Driving Additional Activity Instructio: no lifting >8 lbs or gallon of milk Follow up Referrals: Oncology - 4 Weeks with Ammon Barragan MD PCP Follow-up - 2 Weeks with pcp Surgical - 2 Weeks with Rekha Sanchez MD New Medications: Docusate Sodium (Dok) 100 Mg Cap 100 MG PO BID Constipation #60 CAP Continued Medications: Buspirone (Buspirone) 30 Mg Tab 30 MG PO BID Anxiety Ref 0 TAB Clonazepam (Clonazepam) 0.5 Mg Tab 0.5 MG PO TID #90 Ref 0 TAB Fluoxetine (Fluoxetine) 40 Mg Cap 40 CAP PO DAILY #30 Ref 0 CAP Lisinopril (Lisinopril) 20 Mg Tab 20 MG PO BID #30 Ref 0 TAB Ropinirole (Ropinirole) 0.5 Mg Tab 0.5 MG PO TID #90 Ref 0 TAB Discontinued Medications: Hydrocodone-Acetaminophen (Hydrocodone-Acetaminophen) 10-325 mg Tab 1 TAB PO Q6H PRN PAIN Ref 0 TAB Oxycodone-Acetaminophen (Percocet) 10-325 mg Tab 1 TAB PO Q6H PRN PAIN Ref 0 TAB Herlinda Hu Nov 19, 2016 09:50
== END 2016-11-19 11:25 | disposition home health service (06) | DRG 165 ==
LOC: HSDI 11-12 05:31 → HCPC 11-12 14:30
PROVIDERS: ADMIT Thoracic Surgery (Cardiothoracic Vascular Surgery); ATTEND Thoracic Surgery (Cardiothoracic Vascular Surgery)
PROC: 3E0T3CZ (ICD-10-PCS; 2016-11-12)
PROC: 0BTG0ZZ Resection of Left Upper Lung Lobe, Open Approach (ICD-10-PCS; principal; 2016-11-12 07:35)
PROC: 07B70ZX Excision of Thorax Lymphatic, Open Approach, Diagnostic (ICD-10-PCS; 2016-11-12 07:35)
DX: C34.12 Malignant neoplasm of upper lobe, left bronchus or lung (principal); B19.20 Unspecified viral hepatitis C without hepatic coma; F20.9 Schizophrenia, unspecified; Z72.0 Tobacco use; F41.8 Other specified anxiety disorders
CPT/HCPCS: 71010; 80048; 85025; 86850; 86900; 86901; 88305; 88307; 88309; 94150; 94640; 94664; 94667; 94668; C9290; J0131; J0690; J1100; J1130; J1170; J1885; J2250; J2370; J2405; J2710; J3010; J7120; J7613

== ENCOUNTER → 2016-11-06 | Outpatient (CLI) | payer MEDICARE, OTHER ==
[2016-11-06 12:05] LABS: HEMATOCRIT 41.5 % (39.0-51.0); MEAN CELL VOLUME 95.1 FL (80.0-100.0); MEAN CORPUSCULAR HGB CONC 34.7 % (32.0-36.0); PLATELET COUNT 79 TH/MM3 (150-450); RED BLOOD COUNT 4.37 MIL/MM3 (4.50-5.90); RED CELL DISTRIBUTION WIDTH 14.1 % (11.6-17.2); WHITE BLOOD COUNT 2.7 TH/MM3 (4.0-11.0)
[2016-11-06 12:10] LABS: BLOOD, URINE NEG (NEG); GLUCOSE,URINE NEG (NEG); KETONE, URINE NEG (NEG); NITRITE,URINE NEG (NEG); PH, URINE 6.5 (5.0-8.5); SQUAMOUS EPITHELIAL CELL URINE <1 /hpf (0-5); URINE COLOR YELLOW (YELLW/STRAW)
[2016-11-06 12:12] LABS: APTT (PATIENT) 27.5 SEC (24.3-30.1); PROTHROMBIN TIME - PATIENT 11.2 SEC (9.8-11.6); REVIEW FLAG FINAL
[2016-11-06 12:16] LABS: COMMENT (UR) CULT NOT INDICATED; CULTURE IF INDICATED CULT NOT INDICATED
[2016-11-06 12:26] LABS: BICARBONATE 31.5 MEQ/L (21.0-32.0); POTASSIUM 4.1 MEQ/L (3.5-5.1)
--- NOTE | 2016-11-07 21:26 | EKG ---
Date Performed: 11/06/2016 Time Performed: 11:42:20 PTAGE: 55 years EKG: Sinus rhythm NORMAL ECG PREVIOUS TRACING : 08/03/2016 23.37 DOCTOR: Go Hammer Interpretating Date/Time 11/07/2016 21:12:55
== END ==
LOC: CPRE 11:15
PROVIDERS: ATTEND Thoracic Surgery (Cardiothoracic Vascular Surgery)
DX: Z01.810 Encounter for preprocedural cardiovascular examination (principal); Z01.812 Encounter for preprocedural laboratory examination; C34.12 Malignant neoplasm of upper lobe, left bronchus or lung
CPT/HCPCS: 36415; 80048; 81001; 85027; 85610; 85730; 93005

== ENCOUNTER 2016-11-26 15:04 | Emergency (ER) | payer MEDICARE, MEDICAID ==
[~2016-11-26] VITALS: Ht 180.3 cm; Wt 76.0 kg
[~2016-11-26 15:04] MED LIST changes: +DOCU1CAP39 PO; -HYDR-3583 PO; +ROPI0.5T PO
[2016-11-26 15:06] VITALS: BP 165/77; PULSE 86; RESP 12; TEMP 98.2; O2SAT 97
--- NOTE | 2016-11-26 20:52 | PD ---
HPI Chief Complaint: Skin Problem Time Seen by Provider: 20:52 Travel History International Travel<30 days: No Contact w/Intl Traveler<30days: No Traveled to known affect area: No History of Present Illness HPI 55-year-old male with PMH of tobacco abuse, polysubstance abuse, anxiety, depression, schizophrenia, hepatitis C presents to the ED for evaluation of left -sided posterior chest pain. The patient underwent attempted robotic-assisted left laparoscopic thoracotomy, left posterior lateral muscle sparing thoracotomy with left upper lobectomy by Dr. Sanchez on 11/12/16 for poorly differentiated squamous cell carcinoma. Patient states that home health nurse noticed redness and swelling of one of his incision sites today and recommended that he come to the ED. The patient endorses chills, denies fever. He endorses pain at the site, worsened with certain movements. He states that he has upcoming follow-up appointments with both his PCP and Dr. Sanchez. PFSH Past Medical History Arthritis: Yes (knees and back) Depression: Yes Heart Rhythm Problems: No Cancer: No Cardiac Catheterization: No Cardiovascular Problems: Yes (HTN) High Cholesterol: No Chemotherapy: No (LUNG CANCER WITHOUT CHEMO OR RADIATION) Congestive Heart Failure: No Diabetes: No Diminished Hearing: No Endocrine: No Gastrointestinal Disorders: No Genitourinary: No Hepatitis: Yes ("C") Hiatal Hernia: No Hypertension: No Immune Disorder: No Musculoskeletal: Yes (MUSCLE SPASM, ARTHRITIS) Neurologic: Yes (ENCEPHALOPATHY) Psychiatric: Yes (SCHIZOPHRENIA, DRUG INDUCED MOOD DISORDER) Reproductive: No Respiratory: Yes (LEFT LUNG MASS) Immunizations Current: Yes Schizophrenia: Yes Thyroid Disease: No Past Surgical History Abdominal Surgery: Yes (MAHSA) AICD: No Cardiac Surgery: No Cholecystectomy: Yes Coronary Artery Bypass Graft: No Ear Surgery: No Endocrine Surgery: No Eye Surgery: No Genitourinary Surgery: No Gynecologic Surgery: No Joint Replacement: No Oral Surgery: No Pacemaker: No Thoracic Surgery: No Other Surgery: Yes Social History Alcohol Use: Yes ( 2 beer limit) Tobacco Use: Yes Substance Use: Yes (long hx PSA, admits using ETOH/crack) Allergies-Medications (Allergen,Severity, Reaction): Coded Allergies: Lyrica (Unverified Adverse Reaction, Mild, MAKES HIM DROWSY, 11/26/16) Reported Meds & Prescriptions Reported Meds & Active Scripts Active Keflex (Cephalexin) 500 Mg Cap 500 Mg PO Q12H 10 Days Bactrim DS (Sulfamethoxazole-Trimethoprim) 800-160 Mg Tab 1 Tab PO BID Reported Percocet (Oxycodone-Acetaminophen) 7.5-325 mg Tab 1 Tab PO Q4H PRN Ropinirole 0.5 Mg Tab 0.5 Mg PO TID Lisinopril 20 Mg Tab 20 Mg PO BID Fluoxetine (Fluoxetine HCl) 40 Mg Cap 40 Cap PO DAILY Clonazepam 0.5 Mg Tab 0.5 Mg PO TID Buspirone (Buspirone HCl) 30 Mg Tab 30 Mg PO BID Review of Systems Except as stated in HPI: all other systems reviewed are Neg Physical Exam Narrative GENERAL: Well-nourished, well-developed thin white male, appearing older than his stated age, smelling strongly of cigarettes, in no acute distress.. SKIN: Warm and dry. There are multiple surgical wounds sites on the left lateral back. The largest is ~8-10 cm, healing well, no signs of infection. There is a smaller, more medial and inferior wound of ~3 cm that is tender, erythematous, indurated. No fluctuance or discharge. It is surrounded by an area of inflammation extending 2-3 cm circumferentially. There are several smaller wounds extending across the flank and left lateral chest, consistent with laparoscopic port sites without signs of infection. HEAD: Normocephalic. EYES: No scleral icterus. No injection or drainage. NECK: Supple, trachea midline. No JVD or lymphadenopathy. CARDIOVASCULAR: Regular rate and rhythm without murmurs, gallops, or rubs. 2+ DP and radial pulses bilaterally. RESPIRATORY: Breath sounds diminished in the left upper lobe area. Clear to auscultation. No accessory muscle use. GASTROINTESTINAL: Abdomen soft, non-tender, nondistended. Active bowel sounds. MUSCULOSKELETAL: No cyanosis, or edema. BACK: Nontender without obvious deformity. No CVA tenderness. Data Data Last Documented VS Vital Signs Date Time Temp Pulse Resp B/P Pulse Ox O2 Delivery O2 Flow Rate FiO2 11/26/16 21:17 89 20 11/26/16 21:17 97 Room Air 11/26/16 21:17 178/84 11/26/16 15:06 98.2 Orders Complete Blood Count With Diff (11/26/16 21:06) Comprehensive Metabolic Panel (11/26/16 21:06) Act Partial Throm Time (Ptt) (11/26/16 21:06) Prothrombin Time / Inr (Pt) (11/26/16 21:06) Urinalysis - C+S If Indicated (11/26/16 21:06) Blood Culture (11/26/16 21:06) Iv Access Insert/Monitor (11/26/16 21:06) Ecg Monitoring (11/26/16 21:06) Oximetry (11/26/16 21:06) Oxygen Administration (11/26/16 21:06) Chest, Single Ap (11/26/16 21:06) Sodium Chloride 0.9% Flush (Ns Flush) (11/26/16 21:15) Sodium Chlor 0.9% 1000 Ml Inj (Ns 1000 M (11/26/16 21:15) Morphine Inj (Morphine Inj) (11/26/16 21:15) Ct Thorax/ Chest W Iv Contrast (11/26/16 21:58) Morphine Inj (Morphine Inj) (11/26/16 22:45) Iohexol 350 Inj (Omnipaque 350 Inj) (11/26/16 22:41) Cephalexin (Keflex) (11/26/16 23:30) Sulfamet-Trimeth Ds 800-160 Mg (Bactrim (11/26/16 23:30) Labs Laboratory Tests Test 11/26/16 21:15 White Blood Count 6.8 TH/MM3 Red Blood Count 4.40 MIL/MM3 Hemoglobin 14.6 GM/DL Hematocrit 41.5 % Mean Corpuscular Volume 94.2 FL Mean Corpuscular Hemoglobin 33.1 PG Mean Corpuscular Hemoglobin 35.1 % Concent Red Cell Distribution Width 13.8 % Platelet Count 158 TH/MM3 Mean Platelet Volume 8.8 FL Neutrophils (%) (Auto) 59.6 % Lymphocytes (%) (Auto) 27.2 % Monocytes (%) (Auto) 8.8 % Eosinophils (%) (Auto) 3.6 % Basophils (%) (Auto) 0.8 % Neutrophils # (Auto) 4.0 TH/MM3 Lymphocytes # (Auto) 1.8 TH/MM3 Monocytes # (Auto) 0.6 TH/MM3 Eosinophils # (Auto) 0.2 TH/MM3 Basophils # (Auto) 0.1 TH/MM3 CBC Comment DIFF FINAL Differential Comment Prothrombin Time 11.2 SEC Prothromb Time International 1.0 RATIO Ratio Activated Partial 28.1 SEC Thromboplast Time Sodium Level 139 MEQ/L Potassium Level 3.5 MEQ/L Chloride Level 106 MEQ/L Carbon Dioxide Level 27.2 MEQ/L Anion Gap 6 MEQ/L Blood Urea Nitrogen 12 MG/DL Creatinine 0.85 MG/DL Estimat Glomerular Filtration 94 ML/MIN Rate Random Glucose 84 MG/DL Calcium Level 8.5 MG/DL Total Bilirubin 0.4 MG/DL Aspartate Amino Transf 164 U/L (AST/SGOT) Alanine Aminotransferase 169 U/L (ALT/SGPT) Alkaline Phosphatase 130 U/L Total Protein 7.6 GM/DL Albumin 3.1 GM/DL [facility] Medical Decision Making Medical Screen Exam Complete: Yes Emergency Medical Condition: Yes Differential Diagnosis Postsurgical wound infection versus abscess versus cellulitis versus sepsis versus other Narrative Course 55-year-old male with PMH of tobacco abuse, polysubstance abuse, anxiety, depression, schizophrenia, hepatitis C presents to the ED for evaluation of left -sided posterior chest pain. The patient underwent attempted robotic-assisted left laparoscopic thoracotomy, left posterior lateral muscle sparing thoracotomy with left upper lobectomy by Dr. Sanchez on 11/12/16 for poorly differentiated squamous cell carcinoma. Patient states that home health nurse noticed redness and swelling of one of his incision sites today and recommended that he come to the ED. The patient endorses chills, denies fever. He endorses pain at the site, worsened with certain movements. Vitals reviewed. Patient is afebrile on presentation. Physical exam reveals a nontoxic- appearing white male in no acute distress. There are several surgical sites over the left anterior lateral and posterior lateral chest wall. The area of concern is ~3 cm,tender, erythematous, indurated. No fluctuance or discharge. It is surrounded by an area of inflammation extending 2-3 cm circumferentially. IV was established. Patient was administered 4 mg morphine. CBC: WBC 6.8. Hemoglobin 14.6. INR 1.0. CMP: Elevation of LFTs, otherwise unremarkable. Chest x-ray: Postop left upper lobectomy with residual scarring of the left lung. No focal consolidation per radiology read. CT: Mild area of cellulitis without drainable fluid collection. Mild edema in the soft tissues of the left flank. Air-fluid in the left upper lobectomy operative bed, likely related to recent surgery. Small left-sided pleural effusion. Right lung clear per radiology read. I spoke with Dr. Darryl Cotto, on-call for Dr. Sanchez. He is amenable to discharge with by mouth antibiotics. Patient was prescribed Bactrim DS, Keflex 500 mg twice a day. First doses administered in the ED. He is instructed to continue with previous discharge instructions, follow-up as planned with both Dr. Sanchez and the PCP, return for worsening symptoms. He indicated understanding of the instructions. He is amenable to plan of care. He is stable and discharged home. Diagnosis Primary Impression: Cellulitis Qualified Code: L03.312 - Cellulitis of back except buttock Referrals: Rekha Sanchez MD Patient Instructions: Cellulitis (ED), General Instructions Additional Instructions: Rest, hydrate. Continue with all previous discharge instructions. Take antibiotics as prescribed, even if your symptoms resolve. Follow-up with and your PCP as previously planned. Return to the ED for worsening of symptoms or any urgent or emergent medical condition. Med/Other Pt SpecificInfo: Prescription(s) given Scripts Cephalexin (Keflex)500 Mg Qwr958 Mg PO Q12H 10 Days Ref 0 Prov:Isabelle Shafer MD 11/26/16 Sulfamethoxazole-Trimethoprim (Bactrim DS)800-160 Mg Tab1 Tab PO BID #14 TAB Ref 0 Prov:Isabelle Shafer MD 11/26/16 Disposition: 01 DISCHARGE HOME Condition: Stable Leda Hunter Nov 26, 2016 20:52
[2016-11-26] MEDS ORDERED: SODIUM CHLORIDE 0.9% FLUSH 5 ML FLUSH IVF PRN (21:15)
[2016-11-26] MEDS ORDERED: MORPHINE SULFATE 4 MG/ML INJ IV PUSH ONE ×2 (21:15→22:45)
[2016-11-26] MEDS ORDERED: SODIUM CHLOR 0.9% 1000 ML INJ 1,000 ML IV ONE (21:15)
[2016-11-26 21:17] VITALS: BP 178/84; PULSE 84; RESP 20; O2SAT 97
[2016-11-26] MEDS ORDERED: PERC7.5T13 PO (21:24)
[2016-11-26 21:27] LABS: BASOPHIL # 0.1 TH/MM3 (0-0.2); BASOPHIL % 0.8 % (0.0-2.0); EOSINOPHIL # 0.2 TH/MM3 (0-0.4); EOSINOPHIL % 3.6 % (0.0-4.0); HEMATOCRIT 41.5 % (39.0-51.0); HEMO FLAGS DIFF FINAL; LYMPH % 27.2 % (9.0-44.0); LYMPHOCYTE # 1.8 TH/MM3 (1.0-4.8); MEAN CELL VOLUME 94.2 FL (80.0-100.0); MEAN CORPUSCULAR HEMOGLOBIN 33.1 PG (27.0-34.0); MEAN CORPUSCULAR HGB CONC 35.1 % (32.0-36.0); MONO % 8.8 % (0.0-8.0); NEUT % 59.6 % (16.0-70.0); PLATELET COUNT 158 TH/MM3 (150-450); RED CELL DISTRIBUTION WIDTH 13.8 % (11.6-17.2); WHITE BLOOD COUNT 6.8 TH/MM3 (4.0-11.0)
[2016-11-26 21:39] LABS: APTT (PATIENT) 28.1 SEC (24.3-30.1); PROTHROMBIN TIME - PATIENT 11.2 SEC (9.8-11.6)
[2016-11-26 21:53] LABS: ANION GAP 6 MEQ/L (5-15); AST (GOT) 164 U/L (15-37); BICARBONATE 27.2 MEQ/L (21.0-32.0); BLOOD UREA NITROGEN 12 MG/DL (7-18); CHLORIDE 106 MEQ/L (98-107); GLOMERULAR FILTRATION RATE 94 ML/MIN (>89); POTASSIUM 3.5 MEQ/L (3.5-5.1); SODIUM (NA) 139 MEQ/L (136-145)
[2016-11-26 21:56] LABS: ALKALINE PHOSPHATASE 130 U/L (45-117); ALT (GPT) 169 U/L (12-78); TOTAL BILIRUBIN ADULT 0.4 MG/DL (0.2-1.0)
--- NOTE | 2016-11-26 22:03 | RADRPT ---
EXAM DATE/TIME: 11/26/2016 21:28 [facility] COMPARISON: CHEST SINGLE AP, November 19, 2016, 5:45. INDICATIONS : Shortness of breath. MEDICAL HISTORY : Hypertension. Hepatitis C. SURGICAL HISTORY : Fusion, cervical. Cholecystectomy. Bilateral knee arthroplasty ENCOUNTER: Initial ACUITY: 1 day PAIN SCORE: 9/10 LOCATION: Bilateral chest FINDINGS: Compare November 19. Subcutaneous air left chest wall has resolved. There are postoperative changes of left upper lobectomy. Elevation of left hemidiaphragm and perihilar and basilar parenchymal scarring on the left. Right lung is clear. CONCLUSION: Postoperative left upper lobectomy with residual scarring left lung. No focal consolidation. Buck Kilgore MD on November 26, 2016 at 21:59 Board Certified Radiologist. This report was verified electronically.
[2016-11-26] MEDS ORDERED: IOHEXOL 350 MG/ML 10 ML VIAL (for RAD DIAG) IV ONE (22:41)
--- NOTE | 2016-11-26 22:57 | RADRPT ---
EXAM DATE/TIME: 11/26/2016 22:32 [facility] COMPARISON: No previous studies available for comparison. INDICATIONS : Evaluate for wound infection lower left back. Post lobectomy. IV CONTRAST: 65 cc Omnipaque 350 (iohexol) IV RADIATION DOSE: 3.74 CTDIvol (mGy) MEDICAL HISTORY : Hypertension. Hepatitis C. Carcinoma, lung.Cirrhosis SURGICAL HISTORY : Cholecystectomy. Lobectomy. ENCOUNTER: Initial ACUITY: 2 weeks PAIN SCALE: 8/10 LOCATION: Left lower chest TECHNIQUE: Volumetric scanning of the chest was performed. Using automated exposure control and adjustment of t he mA and/or kV according to patient size, radiation dose was kept as low as reasonably achievable to obtain optimal diagnostic quality images. FINDINGS: There is some stranding in the soft tissues of the lower left back most characteristic of a mild cell ulitis. No discrete abscess in the chest wall. There is a small left-sided pleural effusion. There is a left upper lobectomy. There is also some loc ulated air within the fluid collection in the anterior left hemithorax. Patient is status post recent surgery with chest tube noted on November 12 examination. Right lung is clear. There is no hilar, mediastinal or axillary adenopathy. No pericardial effusion. No acute findings in the upper abdomen. CONCLUSION: 1. Focal skin thickening and stranding of subcutaneous fat in the left lower posterior chest wall mos t characteristic of a mild area of cellulitis. No drainable fluid collections. Mild edematous changes in the soft tissues of the left flank. 2. Air and fluid in the left upper lobectomy operative bed likely related to recent surgery. There is a small left-sided pleural effusion. Right lung is clear. Buck Kilgore MD on November 26, 2016 at 22:50 Board Certified Radiologist. This report was verified electronically.
[2016-11-26] MEDS ORDERED: CEPH-460 PO (23:18)
[2016-11-26] MEDS ORDERED: BACT800T5 PO (23:18)
[2016-11-26] MEDS ORDERED: SULFAMETHOXAZOLE-TRIMETHOPRIM DS 800-160 MG TAB PO ONE (23:30)
[2016-11-26] MEDS ORDERED: CEPHALEXIN MONOHYDRATE 250 MG CAP PO ONE (23:30)
== END 2016-11-27 00:02 | disposition home or self-care (01) ==
LOC: NEPE 15:04
DX: L03.312 Cellulitis of back [any part except buttock and flank] (principal); F17.210 Nicotine dependence, cigarettes, uncomplicated; I10 Essential (primary) hypertension; Z98.890 Other specified postprocedural states
CPT/HCPCS: 71010; 71260; 80053; 85025; 85610; 85730; 87040; 96361; 96374; 96376; 99284; J2270; J7030; Q9967

== ENCOUNTER 2017-01-17 14:45 | Emergency (ER) | payer MEDICARE, OTHER ==
[~2017-01-17 14:45] MED LIST changes: +BACT800T5 PO; +CEPH-460 PO; -DOCU1CAP39 PO; +PERC7.5T13 PO
[2017-01-17 17:15] VITALS: BP 177/90; PULSE 92; RESP 22; O2SAT 97
--- NOTE | 2017-01-17 17:32 | PD ---
HPI Chief Complaint: Back/ Neck Pain or Injury Time Seen by Provider: 17:32 Travel History International Travel<30 days: No Contact w/Intl Traveler<30days: No Traveled to known affect area: No History of Present Illness HPI 56-year-old male with history of lung carcinoma, status post left upper lobectomy 2 months ago, presents to emergency department for evaluation of persistent left anterior lateral rib pain. Patient states that it has persisted since his lobectomy but has worsened. He states his Lortab is no longer helping his pain. He states that he saw his surgeon, Rekha Sanchez, who wanted him to get an outpatient x-ray however the patient states he has not heard anything about this. He states that he could not wait any longer so he came to the emergency department. Patient denies any other chest pain or tightness. He has had no difficulty breathing. Patient continues to smoke 10 tobacco cigarettes daily. He denies any nausea vomiting. No abdominal pain. No urinary symptoms. Pain does not radiate anywhere. It is constant, sharp, stabbing. Denies any other symptoms at this time. PFSH Past Medical History Arthritis: Yes (knees and back) Depression: Yes Heart Rhythm Problems: No Cancer: Yes (LUNG) Cardiac Catheterization: No Cardiovascular Problems: Yes (HTN) High Cholesterol: No Chemotherapy: No (LUNG CANCER WITHOUT CHEMO OR RADIATION) Congestive Heart Failure: No Diabetes: No Diminished Hearing: No Endocrine: No Gastrointestinal Disorders: No Genitourinary: No Hepatitis: Yes ("C") Hiatal Hernia: No Hypertension: Yes Immune Disorder: No Musculoskeletal: Yes (MUSCLE SPASM, ARTHRITIS) Neurologic: Yes (ENCEPHALOPATHY) Psychiatric: Yes (SCHIZOPHRENIA, DRUG INDUCED MOOD DISORDER) Reproductive: No Respiratory: Yes (LEFT LUNG MASS) Immunizations Current: Yes Schizophrenia: Yes Thyroid Disease: No Past Surgical History Abdominal Surgery: Yes (MAHSA) AICD: No Cardiac Surgery: No Cholecystectomy: Yes Coronary Artery Bypass Graft: No Ear Surgery: No Endocrine Surgery: No Eye Surgery: No Genitourinary Surgery: No Gynecologic Surgery: No Joint Replacement: No Neurologic Surgery: Yes (CERVICAL NECK FUSION) Oral Surgery: No Pacemaker: No Thoracic Surgery: Yes (PARTIAL LL LUNG REMOVAL) Other Surgery: Yes Social History Alcohol Use: Yes ( 2 beer limit) Tobacco Use: Yes Substance Use: Yes (long hx PSA, admits using ETOH/crack) Allergies-Medications (Allergen,Severity, Reaction): Coded Allergies: Lyrica (Unverified Adverse Reaction, Mild, MAKES HIM DROWSY, 01/17/17) Reported Meds & Prescriptions Reported Meds & Active Scripts Active Reported Geodon (Ziprasidone) 40 Mg Cap 40 Mg PO BID Hydrocodone-Acetaminophen 10-325 mg Tab 1 Tab PO Q4H PRN Ropinirole 0.5 Mg Tab 0.5 Mg PO TID Lisinopril 20 Mg Tab 20 Mg PO BID Fluoxetine (Fluoxetine HCl) 40 Mg Cap 40 Cap PO DAILY Clonazepam 0.5 Mg Tab 0.5 Mg PO TID Buspirone (Buspirone HCl) 30 Mg Tab 30 Mg PO BID Review of Systems Except as stated in HPI: all other systems reviewed are Neg Physical Exam Narrative GENERAL: Well-nourished male patient, lying in bed, in no acute distress SKIN: Focused skin assessment warm/dry. Well approximated incision site along the posterior trunk on the left. No erythema or edema. No tenderness elicited palpation along the incision site. HEAD: Atraumatic. Normocephalic. EYES: Pupils equal and round. No scleral icterus. No injection or drainage. ENT: No nasal bleeding or discharge. Mucous membranes pink and moist. NECK: Trachea midline. No JVD. CARDIOVASCULAR: Regular rate and rhythm. No murmur appreciated. RESPIRATORY: No accessory muscle use. Coarse throughout, diminished bases. Tenderness elicited to palpation over the right anterior lateral rib cage. No crepitus. No deformity. GASTROINTESTINAL: Abdomen soft, non-tender, nondistended. Hepatic and splenic margins not palpable. Patient notes sensation difference to touch over the left abdomen when compared to the right however there is no pain to palpation of the abdomen. No rebound tenderness or guarding. Normal active bowel sounds. MUSCULOSKELETAL: No obvious deformities. No clubbing. No cyanosis. No edema. NEUROLOGICAL: Awake and alert. No obvious cranial nerve deficits. Motor grossly within normal limits. Normal speech. PSYCHIATRIC: Appropriate mood and affect; insight and judgment normal. Data Data Last Documented VS Vital Signs Date Time Temp Pulse Resp B/P Pulse Ox O2 Delivery O2 Flow Rate FiO2 01/17/17 17:15 92 22 177/90 97 Room Air Orders Chest, Single Ap (01/17/17 ) Ketorolac Inj (Toradol Inj) (01/17/17 18:00) Albuterol-Ipratropium Neb (Duoneb Neb) (01/17/17 18:30) [facility] Medical Decision Making Medical Screen Exam Complete: Yes Emergency Medical Condition: Yes Medical Record Reviewed: Yes Differential Diagnosis Neuralgia versus postop pain versus costochondritis versus pleurisy versus pneumonia versus effusion versus narcotic seeking Narrative Course 56-year-old male presents to the emergency department for evaluation left anterior lateral rib pain. Patient appears without distress. He does have tenderness elicited palpation of the anterolateral aspect of the left or page. No crepitus. No deformity. X-ray imaging is without acute cardiopulmonary disease. There is left hemidiaphragm elevation. no effusion is noted. I discussed the patient with Dr. Blake Sanchez. With nothing identified on chest x-ray , there is nothing more for him to do at this time. Patient has already prescribed pain medication. If pain isn't controlled, patient should consider seeking pain management evaluation. I discussed this with the patient. He'll be discharged at this time. He agrees to return immediately with any acute worsening symptoms. Diagnosis Primary Impression: Rib pain on left side Additional Impression: Neuralgia Referrals: Rekha Sanchez MD Pain Management Patient Instructions: Chest Wall Pain (ED), General Instructions Additional Instructions: Continue with pain medication already prescribed Follow-up with your primary care provider Seek pain management evaluation if symptoms persist Return immediately with any acute worsening symptoms Med/Other Pt SpecificInfo: No Change to Meds Disposition: 01 DISCHARGE HOME Condition: Stable Jazlyn BryantP Jan 17, 2017 17:32
[2017-01-17] MEDS ORDERED: HYDR-3583 PO (17:34)
[2017-01-17] MEDS ORDERED: ZIPR40 PO (17:34)
[2017-01-17] MEDS ORDERED: KETOROLAC TROMETHAMINE 60 MG/2 ML (IM) VIAL IM ONE (18:00)
--- NOTE | 2017-01-17 18:14 | RADRPT ---
EXAM DATE/TIME: 01/17/2017 17:43 [facility] COMPARISON: CHEST SINGLE AP, November 26, 2016, 21:28. INDICATIONS : Chest pain. MEDICAL HISTORY : None. SURGICAL HISTORY : None. ENCOUNTER: Initial ACUITY: 1 day PAIN SCORE: 10/10 LOCATION: Left upper chest FINDINGS: The heart is stable. The pulmonary vascular pattern is normal. The lungs are clear. There is elevatio n of the left hemidiaphragm. CONCLUSION: 1. Elevation of the left hemidiaphragm. 2. No acute focal pulmonary infiltrate or pulmonary vascular congestion. Travis Ponce MD on January 17, 2017 at 18:11 Board Certified Radiologist. This report was verified electronically.
[2017-01-17] MEDS ORDERED: RESP: ALBUTEROL 2.5 MG/IPRATROPIUM 0.5 MG NEB (SCH) NEB ONE (18:30)
[2017-01-17 18:52] VITALS: RESP 17
[2017-01-17 19:12] VITALS: BP 126/65; TEMP 98.4
== END 2017-01-17 19:13 | disposition home or self-care (01) ==
LOC: NEPE 14:45
DX: R07.81 Pleurodynia (principal); M79.2 Neuralgia and neuritis, unspecified; F17.210 Nicotine dependence, cigarettes, uncomplicated; Z85.118 Personal history of other malignant neoplasm of bronchus and lung; Z90.2 Acquired absence of lung [part of]
CPT/HCPCS: 71010; 96372; 99283; J1885

== ENCOUNTER 2017-03-24 19:48 | Emergency (ER) | payer MEDICARE, OTHER ==
[~2017-03-24] VITALS: Ht 180.3 cm; Wt 70.0 kg
[~2017-03-24 19:48] MED LIST changes: -BACT800T5 PO; -CEPH-460 PO; +HYDR-3583 PO; -PERC7.5T13 PO; +ZIPR40 PO
[2017-03-24 20:23] VITALS: BP 171/92; PULSE 87; RESP 21; TEMP 98; O2SAT 98
[2017-03-24] MEDS ORDERED: RESP: ALBUTEROL 2.5 MG/IPRATROPIUM 0.5 MG NEB (SCH) INH ONE (20:45)
[2017-03-24] MEDS ORDERED: ACETAMINOPHEN/HYDROcodone 325 MG/5 MG TAB PO ONE (20:45)
[2017-03-24] MEDS ORDERED: SODIUM CHLORIDE 0.9% FLUSH 10 ML FLUSH IVF PRN (20:45)
[2017-03-24 21:08] VITALS: O2SAT 97
--- NOTE | 2017-03-24 21:14 | RADRPT ---
EXAM DATE/TIME: 03/24/2017 20:58 [facility] COMPARISON: CHEST SINGLE AP, January 17, 2017, 17:43. INDICATIONS : Short of breath, chest pain MEDICAL HISTORY : Hypertension. Hepatitis C. Carcinoma, lung. Cirrhosis SURGICAL HISTORY : Cholecystectomy. Lobectomy. ENCOUNTER: Initial ACUITY: 4 - 6 months PAIN SCORE: 5/10 LOCATION: Left chest FINDINGS: PA and lateral views of the chest demonstrate the lungs to be symmetrically aerated without evidence of mass, infiltrate or effusion. The cardiomediastinal contours are unremarkable. Osseous structure s are intact. CONCLUSION: No evidence of acute cardiopulmonary disease. Lb Green MD on March 24, 2017 at 21:12 Board Certified Radiologist. This report was verified electronically.
[2017-03-24 21:46] LABS: AUTOMATED NEUTROPHIL # 2.4 TH/MM3 (1.8-7.7); BASOPHIL % 1.1 % (0.0-2.0); EOSINOPHIL # 0.3 TH/MM3 (0-0.4); EOSINOPHIL % 6.2 % (0.0-4.0); HEMATOCRIT 37.2 % (39.0-51.0); LYMPH % 30.2 % (9.0-44.0); LYMPHOCYTE # 1.4 TH/MM3 (1.0-4.8); MEAN CELL VOLUME 92.2 FL (80.0-100.0); MEAN CORPUSCULAR HEMOGLOBIN 30.8 PG (27.0-34.0); MEAN CORPUSCULAR HGB CONC 33.4 % (32.0-36.0); MONO % 9.2 % (0.0-8.0); NEUT % 53.3 % (16.0-70.0); PLATELET COUNT 87 TH/MM3 (150-450); RED BLOOD COUNT 4.04 MIL/MM3 (4.50-5.90); RED CELL DISTRIBUTION WIDTH 14.5 % (11.6-17.2); WHITE BLOOD COUNT 4.5 TH/MM3 (4.0-11.0)
[2017-03-24 21:53] LABS: HEMO FLAGS AUTO DIFF
[2017-03-24 22:02] LABS: ALKALINE PHOSPHATASE 107 U/L (45-117); ALT (GPT) 194 U/L (12-78); TOTAL BILIRUBIN ADULT 0.3 MG/DL (0.2-1.0)
[2017-03-24 22:12] LABS: ANION GAP 7 MEQ/L (5-15); AST (GOT) 138 U/L (15-37); BICARBONATE 27.5 MEQ/L (21.0-32.0); BLOOD UREA NITROGEN 14 MG/DL (7-18); CHLORIDE 110 MEQ/L (98-107); GLOMERULAR FILTRATION RATE 77 ML/MIN (>89); SODIUM (NA) 144 MEQ/L (136-145)
[2017-03-24] MEDS ORDERED: MORPHINE SULFATE 4 MG/ML INJ IV PUSH ONE (22:15)
[2017-03-24 22:26] LABS: PLATELET ESTIMATE SMEAR LOW (NORMAL); PLATELET MORPHOLOGY NORMAL (NORMAL); SCAN/DIFF AUTO DIFF CONFIRMED
[2017-03-24] MEDS ORDERED: HYDR7.5T76 PO (22:26)
--- NOTE | 2017-03-24 22:26 | PD ---
HPI Chief Complaint: Pain: Acute or Chronic Time Seen by Provider: 20:22 Travel History International Travel<30 days: No Contact w/Intl Traveler<30days: No Traveled to known affect area: No History of Present Illness HPI Patient is a 56-year-old male who comes in complaining of some shortness of breath for the past 3 days as well as chronic pain to the left side of his chest. 5 months ago, he had a lobectomy for lung cancer and since then he has had pain to the surgical site. He says he has been taking hydrocodone, but he doesn't think is working anymore. He denies any new injuries. He is still smoking. He denies any cough, fever, chills. He denies any leg swelling or calf pain. PFSH Past Medical History Arthritis: Yes (knees and back) Depression: Yes Heart Rhythm Problems: No Cancer: Yes (LUNG) Cardiac Catheterization: No Cardiovascular Problems: Yes High Cholesterol: No Congestive Heart Failure: No Diabetes: No Diminished Hearing: No Endocrine: No Gastrointestinal Disorders: No Genitourinary: No Hepatitis: Yes ("C") Hiatal Hernia: No Hypertension: Yes Immune Disorder: No Medical other: Yes (NECK AND BACK, ARTHRITIS) Musculoskeletal: Yes (MUSCLE SPASM, ARTHRITIS) Neurologic: Yes (ENCEPHALOPATHY) Psychiatric: Yes (SCHIZOPHRENIA, DRUG INDUCED MOOD DISORDER) Reproductive: No Respiratory: Yes (LEFT LUNG MASS) Immunizations Current: Yes Schizophrenia: Yes Thyroid Disease: No Tetanus Vaccination: < 5 Years Past Surgical History Abdominal Surgery: Yes (MAHSA) AICD: No Cardiac Surgery: No Cholecystectomy: Yes Coronary Artery Bypass Graft: No Ear Surgery: No Endocrine Surgery: No Eye Surgery: No Genitourinary Surgery: No Gynecologic Surgery: No Joint Replacement: No Neurologic Surgery: Yes (CERVICAL NECK FUSION) Oral Surgery: No Pacemaker: No Thoracic Surgery: Yes (PARTIAL LL LUNG REMOVAL) Other Surgery: Yes Social History Alcohol Use: No Tobacco Use: Yes Substance Use: Yes (long hx PSA, ETOH/crack) Allergies-Medications (Allergen,Severity, Reaction): Coded Allergies: Lyrica (Unverified Adverse Reaction, Mild, MAKES HIM DROWSY, 03/24/17) Reported Meds & Prescriptions Reported Meds & Active Scripts Active Reported Geodon (Ziprasidone) 40 Mg Cap 40 Mg PO BID Hydrocodone-Acetaminophen 10-325 mg Tab 1 Tab PO Q4H PRN Ropinirole 0.5 Mg Tab 0.5 Mg PO TID Lisinopril 20 Mg Tab 20 Mg PO BID Fluoxetine (Fluoxetine HCl) 40 Mg Cap 40 Cap PO DAILY Clonazepam 0.5 Mg Tab 0.5 Mg PO TID Buspirone (Buspirone HCl) 30 Mg Tab 30 Mg PO BID Review of Systems Except as stated in HPI: all other systems reviewed are Neg General / Constitutional: No: Fever, Chills HENT: No: Headaches, Lightheadedness Respiratory: Positive: Shortness of Breath, No: Cough Gastrointestinal: No: Nausea, Vomiting Genitourinary: No: Dysuria Musculoskeletal: Positive: Pain Skin: No Rash, No Change in Pigmentation Neurologic: No: Weakness, Dizziness Physical Exam Narrative GENERAL: Awake and alert, in no acute distress. SKIN: Focused skin assessment warm/dry. Surgical scars mild lateral left chest. HEAD: Atraumatic. Normocephalic. EYES: Pupils equal and round. No scleral icterus. ENT: Mucous membranes pink and moist. NECK: Trachea midline. No JVD. CARDIOVASCULAR: Regular rate and rhythm. No murmur appreciated. RESPIRATORY: No accessory muscle use. Clear to auscultation. Breath sounds equal bilaterally. GASTROINTESTINAL: Abdomen soft, non-tender, nondistended. MUSCULOSKELETAL: No obvious deformities. No clubbing. No cyanosis. No edema. No calf tenderness. NEUROLOGICAL: Awake and alert. No obvious cranial nerve deficits. Motor grossly within normal limits. Normal speech. PSYCHIATRIC: Appropriate mood and affect; insight and judgment normal. Data Data Last Documented VS Vital Signs Date Time Temp Pulse Resp B/P Pulse Ox O2 Delivery O2 Flow Rate FiO2 03/24/17 21:08 97 Room Air 03/24/17 20:23 98.0 87 21 171/92 Orders Complete Blood Count With Diff (03/24/17 20:42) Comprehensive Metabolic Panel (03/24/17 20:42) Troponin I (03/24/17 20:42) Iv Access Insert/Monitor (03/24/17 20:42) Electrocardiogram (03/24/17 20:42) Ecg Monitoring (03/24/17 20:42) Oximetry (03/24/17 20:42) Oxygen Administration (03/24/17 20:42) Chest, Pa & Lat (03/24/17 20:42) Sodium Chloride 0.9% Flush (Ns Flush) (03/24/17 20:45) Albuterol-Ipratropium Neb (Duoneb Neb) (03/24/17 20:45) Acetamin-Hydrocod 325-5 Mg ([place] 5-325 (03/24/17 20:45) Morphine Inj (Morphine Inj) (03/24/17 22:15) Labs Laboratory Tests Test 03/24/17 21:05 White Blood Count 4.5 TH/MM3 Red Blood Count 4.04 MIL/MM3 Hemoglobin 12.4 GM/DL Hematocrit 37.2 % Mean Corpuscular Volume 92.2 FL Mean Corpuscular Hemoglobin 30.8 PG Mean Corpuscular Hemoglobin 33.4 % Concent Red Cell Distribution Width 14.5 % Platelet Count 87 TH/MM3 Mean Platelet Volume 8.9 FL Neutrophils (%) (Auto) 53.3 % Lymphocytes (%) (Auto) 30.2 % Monocytes (%) (Auto) 9.2 % Eosinophils (%) (Auto) 6.2 % Basophils (%) (Auto) 1.1 % Neutrophils # (Auto) 2.4 TH/MM3 Lymphocytes # (Auto) 1.4 TH/MM3 Monocytes # (Auto) 0.4 TH/MM3 Eosinophils # (Auto) 0.3 TH/MM3 Basophils # (Auto) 0.0 TH/MM3 CBC Comment AUTO DIFF Sodium Level 144 MEQ/L Potassium Level 4.0 MEQ/L Chloride Level 110 MEQ/L Carbon Dioxide Level 27.5 MEQ/L Anion Gap 7 MEQ/L Blood Urea Nitrogen 14 MG/DL Creatinine 1.00 MG/DL Estimat Glomerular Filtration 77 ML/MIN Rate Random Glucose 80 MG/DL Calcium Level 8.2 MG/DL Total Bilirubin 0.3 MG/DL Aspartate Amino Transf 138 U/L (AST/SGOT) Alanine Aminotransferase 194 U/L (ALT/SGPT) Alkaline Phosphatase 107 U/L Troponin I LESS THAN 0.02 NG/ML Total Protein 7.1 GM/DL Albumin 2.9 GM/DL [facility] Medical Decision Making Medical Screen Exam Complete: Yes Emergency Medical Condition: Yes Medical Record Reviewed: Yes Interpretation(s) ECG shows sinus rhythm at 92, no ST elevation or depression Differential Diagnosis Chronic pain versus COPD versus pneumonia versus bronchitis Narrative Course Patient is a 56-year-old male comes in complaining of pain to his left lateral chest since having surgery 5 months ago. Exam shows no acute abnormalities. IV established, labs sent. Labs show an elevation in AST and ALT. Patient advised he should no longer take the Lortab that has Tylenol in it as it seems to be affecting his liver. He is having no tenderness in his right upper quadrant on exam. Given a prescription for just hydrocodone/ibuprofen. He was given pain medicine here. He is resting comfortably. Oxygen saturation is remain normal. Chest x-ray shows no acute abnormalities. Patient advised he should follow-up with a primary care doctor. Advised to quit smoking. Advised to return to the ED as needed for any worsening symptoms. 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 Avoid Tylenol and alcohol going forward. Follow-up with a primary care doctor. Return to the ED as needed for any worsening symptoms. Scripts Hydrocodone-Ibuprofen 7.5-200 Mg Tab1 Tab PO Q6H PRN (PAIN) #12 TAB Ref 0 Prov:Cony Sanabria MD 03/24/17 Disposition: DISCHARGE HOME Condition: Stable Cony Sanabria MD Mar 24, 2017 22:26
--- NOTE | 2017-03-25 21:54 | EKG ---
Date Performed: 03/24/2017 Time Performed: 21:05:59 PTAGE: 56 years EKG: Sinus rhythm POSSIBLE LEFT ATRIAL ENLARGEMENT POSSIBLE RIGHT VENTRICULAR CONDUCTION DELAY POSSIBLE LEFT VENTRICUL AR HYPERTROPHY Since previous tracing, no significant change noted ABNORMAL ECG PREVIOUS TRACING : 11/06/2016 11.42 DOCTOR: Angelina Ortez Interpretating Date/Time 03/25/2017 21:51:52
== END 2017-03-24 22:36 | disposition home or self-care (01) ==
LOC: NEPD 19:48
DX: G89.22 Chronic post-thoracotomy pain (principal); I10 Essential (primary) hypertension; F17.210 Nicotine dependence, cigarettes, uncomplicated; Z85.118 Personal history of other malignant neoplasm of bronchus and lung
CPT/HCPCS: 71020; 80053; 84484; 85025; 93005; 94664; 96374; 99285; J2270

== ENCOUNTER 2017-07-09 12:26 | Emergency (ER) | payer MEDICARE, OTHER ==
[~2017-07-09] VITALS: Ht 180.3 cm; Wt 68.0 kg
[~2017-07-09 12:26] MED LIST changes: +HYDR7.5T76 PO
[2017-07-09 12:52] VITALS: BP 150/79; PULSE 105; RESP 20; TEMP 99; O2SAT 96
--- NOTE | 2017-07-09 12:55 | PD ---
Physical Exam Date Seen by Provider: Jul 09, 2017 Time Seen by Provider: 12:52 Narrative 56-year-old white male presents to emergency department by EMS for evaluation of cough and congestion. He states that over the past 4 days he has developed increasing shortness of breath, cough , pleuritic left chest wall pain and colored sputum. Patient has had a history of chronic left lung pain after having a lobectomy secondary to lung cancer 6 months ago. History of lung CVA, hepatitis C. Smokes a half pack a day. No alcohol. No calf pain or leg swelling. Vital signs reviewed. Awaiting bed placement. [facility] Medical Record Reviewed: No Supervised Visit with BLANE: No Condition: Stable Buck Yeung Jul 09, 2017 12:55
[2017-07-09 13:00] VITALS: BP 141/76; PULSE 97; RESP 19; TEMP 99.2; O2SAT 96
[2017-07-09] MEDS ORDERED: MORP1TAB24 PO (13:05)
--- NOTE | 2017-07-09 13:47 | PD ---
HPI Chief Complaint: Cold / Flu Symptoms Time Seen by Provider: 13:47 Travel History International Travel<30 days: No Contact w/Intl Traveler<30days: No Traveled to known affect area: No History of Present Illness HPI 56-year-old male came to the emergency room with history of cough and not feeling well for past 3-4 days. As he has history of lung cancer and had his half of the left lung resected earlier this year. He has not been to any chemo- radiation therapy. Complains of some chills. Patient continues to smoke. He is producing whitish colored sputum he says. No sick contacts around him. He also complains of some chest pain which is diffuse in nature. Chest pain is nonradiating. Awaiting or relieving factors. Vital signs showed mild tachycardia upon arrival [facility] Past Medical History Narrative Medical List of his past medical, surgical, social and family history is reviewed from the nursing note. Arthritis: Yes (knees and back) Depression: Yes Heart Rhythm Problems: No Cancer: Yes (LUNG) Cardiac Catheterization: No Cardiovascular Problems: Yes High Cholesterol: No Congestive Heart Failure: No Diabetes: No Diminished Hearing: No Endocrine: No Gastrointestinal Disorders: No Genitourinary: No Hepatitis: Yes ("C") Hiatal Hernia: No Hypertension: Yes Immune Disorder: No Medical other: Yes (NECK AND BACK, ARTHRITIS) Musculoskeletal: Yes (MUSCLE SPASM, ARTHRITIS) Neurologic: Yes (ENCEPHALOPATHY) Psychiatric: Yes (SCHIZOPHRENIA, DRUG INDUCED MOOD DISORDER) Reproductive: No Respiratory: Yes (LEFT LUNG MASS) Immunizations Current: Yes Schizophrenia: Yes Thyroid Disease: No Past Surgical History AICD: No Cardiac Surgery: No Cholecystectomy: Yes Coronary Artery Bypass Graft: No Ear Surgery: No Endocrine Surgery: No Eye Surgery: No Genitourinary Surgery: No Gynecologic Surgery: No Joint Replacement: No Neurologic Surgery: Yes (CERVICAL NECK FUSION) Oral Surgery: No Pacemaker: No Thoracic Surgery: Yes (PARTIAL LL LUNG REMOVAL) Other Surgery: Yes Social History Alcohol Use: No Tobacco Use: Yes Substance Use: Yes (long hx PSA, ETOH/crack) Allergies-Medications (Allergen,Severity, Reaction): Coded Allergies: pregabalin (Unverified Adverse Reaction, Mild, MAKES HIM DROWSY, 07/09/17) Comments List of his allergies reviewed from the nursing note. Reported Meds & Prescriptions Reported Meds & Active Scripts Active Ventolin Hfa 18 GM Inh (Albuterol Sulfate) 90 Mcg/Act Aer 2 Puff INH Q4-6H PRN Augmentin (Amoxicillin-Clavulanate) 500-125 mg Tab 500 Mg PO BID 10 Days Reported Morphine ER (Morphine Sulfate) 15 Mg Tab 15 Mg PO BID Geodon (Ziprasidone) 40 Mg Cap 40 Mg PO BID Hydrocodone-Acetaminophen 10-325 mg Tab 1 Tab PO Q4H PRN Ropinirole 0.5 Mg Tab 0.5 Mg PO TID Lisinopril 20 Mg Tab 20 Mg PO BID Fluoxetine (Fluoxetine HCl) 40 Mg Cap 40 Cap PO DAILY Clonazepam 0.5 Mg Tab 0.5 Mg PO TID Buspirone (Buspirone HCl) 30 Mg Tab 30 Mg PO BID Narrative Medication List of his home medications reviewed from the nursing note. Review of Systems Except as stated in HPI: all other systems reviewed are Neg Physical Exam Narrative GENERAL: Awake, alert, mild distress SKIN: Focused skin assessment warm/dry. HEAD: Atraumatic. Normocephalic. EYES: Pupils equal and round. No scleral icterus. No injection or drainage. ENT: No nasal bleeding or discharge. Mucous membranes pink and moist. NECK: Trachea midline. No JVD. CARDIOVASCULAR: Regular rate and rhythm. No murmur appreciated. RESPIRATORY: No accessory muscle use. Clear to auscultation. Breath sounds equal bilaterally. GASTROINTESTINAL: Abdomen soft, non-tender, nondistended. Hepatic and splenic margins not palpable. MUSCULOSKELETAL: No obvious deformities. No clubbing. No cyanosis. No edema. NEUROLOGICAL: Awake and alert. No obvious cranial nerve deficits. Motor grossly within normal limits. Normal speech. PSYCHIATRIC: Appropriate mood and affect; insight and judgment normal. Data Data Last Documented VS Vital Signs Date Time Temp Pulse Resp B/P (MAP) Pulse Ox O2 Delivery O2 Flow Rate FiO2 07/09/17 18:03 07/09/17 13:00 99.2 97 19 96 Room Air Orders Orders Complete Blood Count With Diff (07/09/17 14:32) Comprehensive Metabolic Panel (07/09/17 14:32) Lactic Acid Sepsis Protocol (07/09/17 14:32) Blood Culture (07/09/17 14:32) Chest, Single Ap (07/09/17 14:32) Blood Glucose (07/09/17 14:32) Ecg Monitoring (07/09/17 14:32) Iv Access Insert/Monitor (07/09/17 14:32) Oximetry (07/09/17 14:32) Oxygen Administration (07/09/17 14:32) Electrocardiogram (07/09/17 ) Troponin I (07/09/17 14:32) Lipase (07/09/17 14:32) Ketorolac Inj (Toradol Inj) (07/09/17 14:45) Albuterol Neb (Albuterol Neb) (07/09/17 14:45) Labs Laboratory Tests Test 07/09/17 14:45 White Blood Count 11.4 TH/MM3 Red Blood Count 3.89 MIL/MM3 Hemoglobin 12.2 GM/DL Hematocrit 35.9 % Mean Corpuscular Volume 92.4 FL Mean Corpuscular Hemoglobin 31.3 PG Mean Corpuscular Hemoglobin Concent 33.9 % Red Cell Distribution Width 13.0 % Platelet Count 115 TH/MM3 Mean Platelet Volume 8.5 FL Neutrophils (%) (Auto) 68.9 % Lymphocytes (%) (Auto) 19.3 % Monocytes (%) (Auto) 10.7 % Eosinophils (%) (Auto) 0.7 % Basophils (%) (Auto) 0.4 % Neutrophils # (Auto) 7.8 TH/MM3 Lymphocytes # (Auto) 2.2 TH/MM3 Monocytes # (Auto) 1.2 TH/MM3 Eosinophils # (Auto) 0.1 TH/MM3 Basophils # (Auto) 0.0 TH/MM3 CBC Comment DIFF FINAL Differential Comment Blood Urea Nitrogen 13 MG/DL Creatinine 0.74 MG/DL Random Glucose 72 MG/DL Total Protein 7.6 GM/DL Albumin 2.9 GM/DL Calcium Level 8.2 MG/DL Alkaline Phosphatase 69 U/L Aspartate Amino Transf (AST/SGOT) 23 U/L Alanine Aminotransferase (ALT/SGPT) 22 U/L Total Bilirubin 0.9 MG/DL Sodium Level 134 MEQ/L Potassium Level 3.5 MEQ/L Chloride Level 102 MEQ/L Carbon Dioxide Level 22.4 MEQ/L Anion Gap 10 MEQ/L Estimat Glomerular Filtration Rate 109 ML/MIN Lactic Acid Level 0.8 mmol/L Troponin I LESS THAN 0.02 NG/ML Lipase 74 U/L MDM Medical Decision Making Medical Screen Exam Complete: Yes Emergency Medical Condition: Yes Medical Record Reviewed: Yes Interpretation(s) Twelve-lead EKG was reviewed by me. Normal sinus rhythm, normal axis, nonspecific ST-T wave changes. Heart rate of 90 bpm. Differential Diagnosis Pneumonia, bronchitis, ACS Narrative Course 4:42 PM blood test results are back. Patient has slight leukocytosis. Chest x- rays within normal limit. I gave him one dose of albuterol nebulizer. I will discharge him home on Augmentin. Procedures EKG Prior to Arrival: No Diagnosis Primary Impression: Generalized weakness Additional Impressions: Cough Needs smoking cessation education Referrals: Primary Care Physician Additional Instructions: Please return to the ER if the condition worsens or any other new concerns. Otherwise follow-up with your primary care in next couple days. Take the medication as per the prescription direction. You should quit smoking give any other current condition as well as history of lung cancer. Med/Other Pt SpecificInfo: Prescription(s) given Scripts Albuterol 18 GM Inh (Ventolin Hfa 18 GM Inh) 90 Mcg/Act Aer 2 PUFF INH Q4-6H Y for SHORTNESS OF BREATH, #1 INHALER 0 Refills Prov: Mathew Shelby MD 07/09/17 Amoxicillin-Clavulanate (Augmentin) 500-125 mg Tab 500 MG PO BID for Infection for 10 Days, TAB 0 Refills Prov: Mathew Shelby MD 07/09/17 Disposition: 01 DISCHARGE HOME Condition: Stable Mathew Shelby MD Jul 09, 2017 13:47
[2017-07-09] MEDS ORDERED: RESP: ALBUTEROL 2.5 MG/3 ML NEB (SCH) NEB ONE (14:45)
[2017-07-09] MEDS ORDERED: KETOROLAC TROMETHAMINE 30 MG/ML (IVP) VIAL IV PUSH ONE (14:45)
[2017-07-09 15:10] LABS: AUTOMATED NEUTROPHIL # 7.8 TH/MM3 (1.8-7.7); BASOPHIL % 0.4 % (0.0-2.0); EOSINOPHIL # 0.1 TH/MM3 (0-0.4); EOSINOPHIL % 0.7 % (0.0-4.0); HEMATOCRIT 35.9 % (39.0-51.0); HEMO FLAGS DIFF FINAL; LYMPH % 19.3 % (9.0-44.0); LYMPHOCYTE # 2.2 TH/MM3 (1.0-4.8); MEAN CELL VOLUME 92.4 FL (80.0-100.0); MEAN CORPUSCULAR HEMOGLOBIN 31.3 PG (27.0-34.0); MEAN CORPUSCULAR HGB CONC 33.9 % (32.0-36.0); MONO % 10.7 % (0.0-8.0); NEUT % 68.9 % (16.0-70.0); PLATELET COUNT 115 TH/MM3 (150-450); RED BLOOD COUNT 3.89 MIL/MM3 (4.50-5.90); WHITE BLOOD COUNT 11.4 TH/MM3 (4.0-11.0)
[2017-07-09 15:29] LABS: ALKALINE PHOSPHATASE 69 U/L (45-117); TOTAL BILIRUBIN ADULT 0.9 MG/DL (0.2-1.0)
--- NOTE | 2017-07-09 15:48 | RADRPT ---
EXAM DATE/TIME: 07/09/2017 15:16 [facility] COMPARISON: CHEST PA & LAT, March 24, 2017, 20:58. INDICATIONS : Cough and congestion. MEDICAL HISTORY : Hypertension. Hepatitis C. Carcinoma, lung. Cirrhosis SURGICAL HISTORY : Cholecystectomy. Lobectomy. ENCOUNTER: Initial ACUITY: 4 - 6 days PAIN SCORE: 0/10 LOCATION: Bilateral chest FINDINGS: A single view of the chest demonstrates the lungs to be symmetrically aerated without evidence of mas s, infiltrate or effusion. The cardiomediastinal contours are unremarkable. Osseous structures are intact. Old left rib fracture. CONCLUSION: No acute disease. Darryl Disla MD on July 09, 2017 at 15:46 Board Certified Radiologist. This report was verified electronically.
[2017-07-09 15:52] LABS: ALT (GPT) 22 U/L (12-78); ANION GAP 10 MEQ/L (5-15); AST (GOT) 23 U/L (15-37); BICARBONATE 22.4 MEQ/L (21.0-32.0); BLOOD UREA NITROGEN 13 MG/DL (7-18); CHLORIDE 102 MEQ/L (98-107); GLOMERULAR FILTRATION RATE 109 ML/MIN (>89); POTASSIUM 3.5 MEQ/L (3.5-5.1); SODIUM (NA) 134 MEQ/L (136-145)
[2017-07-09] MEDS ORDERED: AUGM500T7 PO (16:29)
[2017-07-09] MEDS ORDERED: VENTAER INH (16:29)
--- NOTE | 2017-07-09 23:38 | EKG ---
Date Performed: 07/09/2017 Time Performed: 14:50:44 PTAGE: 56 years EKG: Sinus rhythm POSSIBLE RIGHT VENTRICULAR CONDUCTION DELAY MINIMAL VOLTAGE CRITERIA FOR LVH, CONSIDER NORMAL VARIAN T BORDERLINE ECG PREVIOUS TRACING : 03/24/2017 21.05 Compared to prior tracing no significant change DOCTOR: Lm De Los Santos Interpretating Date/Time 07/09/2017 23:36:47
== END 2017-07-09 18:02 | disposition home or self-care (01) ==
LOC: NEPC 12:26
DX: R53.1 Weakness (principal); R05 Cough; R07.9 Chest pain, unspecified; I10 Essential (primary) hypertension; F17.210 Nicotine dependence, cigarettes, uncomplicated; Z85.118 Personal history of other malignant neoplasm of bronchus and lung
CPT/HCPCS: 71010; 80053; 83605; 83690; 84484; 85025; 87040; 93005; 94664; 96374; 99285; J1885; J7613

== ENCOUNTER 2017-09-02 16:57 | Emergency (ER) | payer MEDICARE, OTHER ==
[~2017-09-02 16:57] MED LIST changes: +AUGM500T7 PO; -HYDR7.5T76 PO; +MORP1TAB24 PO; +VENTAER INH
[2017-09-02 16:58] VITALS: BP 155/72; PULSE 103; RESP 18; TEMP 98.4; O2SAT 95
--- NOTE | 2017-09-02 18:13 | PD ---
HPI Chief Complaint: Respiratory Symptoms Time Seen by Provider: 18:13 Travel History International Travel<30 days: No Contact w/Intl Traveler<30days: No Traveled to known affect area: No History of Present Illness HPI PT WITH HISTORY OF LEFT UPPER LOBECTOMY HAVING WORSENING SHORTNESS OF BREATH TODAY COUGH AND CHEST CONGESTION PAIN THROUGHOUT CHEST RADIATING TO LEFT SIDE HX OF LUNG CA areas had no fever or chills. PFSH Past Medical History Arthritis: Yes (knees and back) Depression: Yes Heart Rhythm Problems: No Cancer: Yes (LUNG) Cardiac Catheterization: No Cardiovascular Problems: Yes (HTN) High Cholesterol: No Congestive Heart Failure: No Diabetes: No Diminished Hearing: No Endocrine: No Gastrointestinal Disorders: No Genitourinary: No Hepatitis: Yes ("C") Hiatal Hernia: No Hypertension: Yes Immune Disorder: No Musculoskeletal: Yes (MUSCLE SPASM, ARTHRITIS) Neurologic: Yes (ENCEPHALOPATHY) Psychiatric: Yes (SCHIZOPHRENIA, DRUG INDUCED MOOD DISORDER) Reproductive: No Respiratory: Yes Immunizations Current: Yes Schizophrenia: Yes Thyroid Disease: No Past Surgical History AICD: No Cardiac Surgery: No Cholecystectomy: Yes Coronary Artery Bypass Graft: No Ear Surgery: No Endocrine Surgery: No Eye Surgery: No Genitourinary Surgery: No Gynecologic Surgery: No Joint Replacement: No Neurologic Surgery: Yes (CERVICAL NECK FUSION) Oral Surgery: No Pacemaker: No Thoracic Surgery: Yes (PARTIAL LL LUNG REMOVAL) Other Surgery: Yes Social History Alcohol Use: No Tobacco Use: Yes Substance Use: Yes (long hx PSA, ETOH/crack) Allergies-Medications (Allergen,Severity, Reaction): Coded Allergies: pregabalin (Unverified Adverse Reaction, Mild, MAKES HIM DROWSY, 07/09/17) Reported Meds & Prescriptions Reported Meds & Active Scripts Active Ventolin Hfa 18 GM Inh (Albuterol Sulfate) 90 Mcg/Act Aer 2 Puff INH Q4-6H PRN Augmentin (Amoxicillin-Clavulanate) 500-125 mg Tab 500 Mg PO BID 10 Days Reported Morphine ER (Morphine Sulfate) 15 Mg Tab 15 Mg PO BID Geodon (Ziprasidone) 40 Mg Cap 40 Mg PO BID Hydrocodone-Acetaminophen 10-325 mg Tab 1 Tab PO Q4H PRN Ropinirole 0.5 Mg Tab 0.5 Mg PO TID Lisinopril 20 Mg Tab 20 Mg PO BID Fluoxetine (Fluoxetine HCl) 40 Mg Cap 40 Cap PO DAILY Clonazepam 0.5 Mg Tab 0.5 Mg PO TID Buspirone (Buspirone HCl) 30 Mg Tab 30 Mg PO BID Review of Systems Except as stated in HPI: all other systems reviewed are Neg Physical Exam Narrative GENERAL: Well-developed male patient, ambulatory and in no acute distress. SKIN: Warm and dry. HEAD: Normocephalic. EYES: No scleral icterus. No injection or drainage. NECK: Supple, trachea midline. CARDIOVASCULAR: Tachycardic RESPIRATORY: Audible wheezes without stethoscope auscultation. GASTROINTESTINAL: Abdomen nondistended. MUSCULOSKELETAL: No cyanosis, or edema. BACK: no Obvious deformity. Data Data Last Documented VS Vital Signs Date Time Temp Pulse Resp B/P (MAP) Pulse Ox O2 Delivery O2 Flow Rate FiO2 09/02/17 16:58 98.4 103 18 155/72 (99) 95 Orders Orders Chest, Pa & Lat (09/02/17 17:30) MDM Medical Decision Making Medical Screen Exam Complete: Yes Emergency Medical Condition: Yes Medical Record Reviewed: Yes Differential Diagnosis Pneumonia versus influenza versus bronchitis versus COPD exacerbation versus neoplasm Narrative Course AMA: The risks of leaving against medical advice without further evaluation treatment were discussed with the patient. These risks include cardiac dysfunction, cardiac dysrhythmia, possible heart attack, possible stroke or . The patient indicated understanding of these risks and appeared to have the capacity to make this decision. Diagnosis Primary Impression: Shortness of breath Disposition: 07 AGAINST MEDICAL ADVICE Condition: Stable BryantJazlyn nicole PAMELA Sep 02, 2017 18:13
--- NOTE | 2017-09-02 18:37 | RADRPT ---
EXAM DATE/TIME: 09/02/2017 17:56 [facility] COMPARISON: CHEST SINGLE AP, July 09, 2017, 15:16. CHEST PA & LAT, March 24, 2017, 20:58. INDICATIONS : Patient increasingly short of breath. MEDICAL HISTORY : Hypertension. Hepatitis C. Carcinoma, lung.Cirrhosis SURGICAL HISTORY : Cholecystectomy. Lobectomy. ENCOUNTER: Initial ACUITY: 2 days PAIN SCORE: 3/10 LOCATION: Bilateral upper chest FINDINGS: The heart size is normal. The lungs are clear. The lungs are hyperinflated. There is asymmetry to the parenchymal markings with less parenchymal markings seen on the left which may suggest the patient h ad a prior left partial pneumonectomy. No effusion is seen. There is anterior cervical fusion plate p resent. There is a old fracture deformity at the left seventh rib. Clips are seen in the right upper quadrant of the abdomen. CONCLUSION: No acute disease. Lb Day MD on September 02, 2017 at 18:33 Board Certified Radiologist. This report was verified electronically.
== END 2017-09-02 18:12 | disposition left against medical advice (07) ==
LOC: NED 18:00
DX: R06.02 Shortness of breath (principal); R05 Cough; R09.89 Other specified symptoms and signs involving the circulatory and respiratory systems; R00.0 Tachycardia, unspecified; I10 Essential (primary) hypertension; F20.9 Schizophrenia, unspecified; M19.90 Unspecified osteoarthritis, unspecified site; F19.94 Other psychoactive substance use, unspecified with psychoactive substance-induced mood disorder; Z85.118 Personal history of other malignant neoplasm of bronchus and lung
CPT/HCPCS: 71020; 99283

== ENCOUNTER 2018-01-14 17:20 | Emergency (ER) | payer MEDICARE, OTHER ==
[2018-01-14 18:14] VITALS: BP 116/71; PULSE 97; RESP 20; TEMP 98.2; O2SAT 98
[2018-01-14] MEDS ORDERED: SODIUM CHLORIDE 0.9% FLUSH 10 ML FLUSH IVF PRN (20:00)
[2018-01-14] MEDS ORDERED: ONDANSETRON HCL 4 MG/2 ML VIAL IV PUSH ONE (20:00)
[2018-01-14] MEDS ORDERED: KETOROLAC TROMETHAMINE 30 MG/ML (IVP) VIAL IV PUSH ONE (20:00)
[2018-01-14] MEDS ORDERED: SODIUM CHLOR 0.9% 1000 ML INJ 1,000 ML IV ONE (20:00)
--- NOTE | 2018-01-14 20:08 | PD ---
HPI Chief Complaint: General Weakness Time Seen by Provider: 19:55 Travel History International Travel<30 days: No Contact w/Intl Traveler<30days: No Traveled to known affect area: No History of Present Illness HPI 57-year-old male since the ED via EMS for evaluation of 6-8 hours history of dizziness, chest tightness. Patient endorses chronic cough, no worse today. He is current smoker. Endorses chronic shortness of breath. He denies headache , vision changes, palpitations, shortness of breath, abdominal pain, nausea, vomiting, dysuria, back pain, weakness of the extremities. He states that he's felt generally weak for about 3 years. He complains of chronic pain of the left side secondary to partial pneumonectomy. He states that he is very anxious and requests medications. He states that he was feeling so tired that he tried taking some meth yesterday to feel better. He denies IVDA. PFSH Past Medical History Arthritis: Yes (knees and back) Depression: Yes Heart Rhythm Problems: No Cancer: Yes (LUNG) Cardiac Catheterization: No Cardiovascular Problems: Yes (HTN) High Cholesterol: No Chemotherapy: No (LUNG CANCER WITHOUT CHEMO OR RADIATION) Congestive Heart Failure: No Diabetes: No Diminished Hearing: No Endocrine: No Gastrointestinal Disorders: No Genitourinary: No Hepatitis: Yes (C) Hiatal Hernia: No Hypertension: Yes Immune Disorder: No Musculoskeletal: Yes (MUSCLE SPASM, ARTHRITIS) Neurologic: Yes (ENCEPHALOPATHY) Psychiatric: Yes (SCHIZOPHRENIA, DRUG INDUCED MOOD DISORDER) Reproductive: No Respiratory: Yes Immunizations Current: Yes Schizophrenia: Yes Thyroid Disease: No Past Surgical History AICD: No Cardiac Surgery: No Cholecystectomy: Yes Coronary Artery Bypass Graft: No Ear Surgery: No Endocrine Surgery: No Eye Surgery: No Genitourinary Surgery: No Gynecologic Surgery: No Joint Replacement: No Neurologic Surgery: Yes (CERVICAL NECK FUSION) Oral Surgery: No Pacemaker: No Thoracic Surgery: Yes (PARTIAL LL LUNG REMOVAL) Other Surgery: Yes Social History Alcohol Use: No Tobacco Use: Yes Substance Use: Yes (METH, COCAINE) Allergies-Medications (Allergen,Severity, Reaction): Coded Allergies: pregabalin (Unverified Adverse Reaction, Mild, MAKES HIM DROWSY, 07/09/17) Reported Meds & Prescriptions Reported Meds & Active Scripts Active Ventolin Hfa 18 GM Inh (Albuterol Sulfate) 90 Mcg/Act Aer 2 Puff INH Q4-6H PRN Reported Morphine ER (Morphine Sulfate) 15 Mg Tab 15 Mg PO BID Geodon (Ziprasidone) 40 Mg Cap 40 Mg PO BID Hydrocodone-Acetaminophen 10-325 mg Tab 1 Tab PO Q4H PRN Ropinirole 0.5 Mg Tab 0.5 Mg PO TID Lisinopril 20 Mg Tab 20 Mg PO BID Fluoxetine (Fluoxetine HCl) 40 Mg Cap 40 Cap PO DAILY Clonazepam 0.5 Mg Tab 0.5 Mg PO TID Buspirone (Buspirone HCl) 30 Mg Tab 30 Mg PO BID Review of Systems Except as stated in HPI: all other systems reviewed are Neg Physical Exam Exam Limitations: Other: (exam performed an ambulance called, limited due to privacy concerns) Narrative GENERAL: Well-nourished, well-developed white male in no acute distress. SKIN: Focused skin assessment warm/dry. HEAD: Normocephalic. EYES: No scleral icterus. No injection or drainage. NECK: Supple, trachea midline. No JVD or lymphadenopathy. CARDIOVASCULAR: Regular rate and rhythm without murmurs, gallops, or rubs. CHEST: Nontender throughout without deformity or crepitus. RESPIRATORY: Breath sounds reduced in the left lower. Mild end expiratory wheezing. No accessory muscle use. GASTROINTESTINAL: Abdomen soft, non-tender, nondistended. MUSCULOSKELETAL: No cyanosis, or edema. NEUROLOGICAL: Awake and alert. Cranial nerves II through XII intact. Motor and sensory grossly within normal limits. Five out of 5 muscle strength in all muscle groups. Normal speech. BACK: Nontender without obvious deformity. No CVA tenderness. Data Data Last Documented VS Vital Signs Date Time Temp Pulse Resp B/P (MAP) Pulse Ox O2 Delivery O2 Flow Rate FiO2 01/14/18 18:14 98.2 97 20 116/71 (86) 98 Orders Orders Comprehensive Metabolic Panel (01/14/18 19:19) Cbc No Diff, Includes Plts (01/14/18 19:19) Electrocardiogram (01/14/18 20:00) Troponin I (01/14/18 20:00) Act Partial Throm Time (Ptt) (01/14/18 20:00) Prothrombin Time / Inr (Pt) (01/14/18 20:00) Urinalysis - C+S If Indicated (01/14/18 20:00) Chest, Single Ap (01/14/18 20:00) Ct Brain W/O Iv Contrast(Rout) (01/14/18 20:00) Ecg Monitoring (01/14/18 20:00) Iv Access Insert/Monitor (01/14/18 20:00) Oximetry (01/14/18 20:00) Sodium Chloride 0.9% Flush (Ns Flush) (01/14/18 20:00) Sodium Chlor 0.9% 1000 Ml Inj (Ns 1000 M (01/14/18 20:00) Ketorolac Inj (Toradol Inj) (01/14/18 20:00) Ondansetron Inj (Zofran Inj) (01/14/18 20:00) Drug Screen, Random Urine (01/14/18 20:02) Ed Discharge Order (01/14/18 22:51) Labs Laboratory Tests Test 01/14/18 19:25 01/14/18 20:00 01/14/18 22:05 White Blood Count 5.6 TH/MM3 Red Blood Count 4.85 MIL/MM3 Hemoglobin 15.7 GM/DL Hematocrit 44.4 % Mean Corpuscular Volume 91.5 FL Mean Corpuscular Hemoglobin 32.4 PG Mean Corpuscular Hemoglobin Concent 35.4 % Red Cell Distribution Width 13.4 % Platelet Count 121 TH/MM3 Mean Platelet Volume 9.1 FL Blood Urea Nitrogen 17 MG/DL Creatinine 0.91 MG/DL Random Glucose 69 MG/DL Total Protein 8.3 GM/DL Albumin 3.4 GM/DL Calcium Level 9.2 MG/DL Alkaline Phosphatase 79 U/L Aspartate Amino Transf (AST/SGOT) 194 U/L Alanine Aminotransferase (ALT/SGPT) 237 U/L Total Bilirubin 0.7 MG/DL Sodium Level 139 MEQ/L Potassium Level 3.8 MEQ/L Chloride Level 104 MEQ/L Carbon Dioxide Level 28.3 MEQ/L Anion Gap 7 MEQ/L Estimat Glomerular Filtration Rate 86 ML/MIN Troponin I LESS THAN 0.02 NG/ML Prothrombin Time 10.7 SEC Prothromb Time International Ratio 1.1 RATIO Activated Partial Thromboplast Time 26.7 SEC MDM Medical Decision Making Medical Screen Exam Complete: Yes Emergency Medical Condition: Yes Differential Diagnosis Substance abuse versus dehydration versus metabolic derangement versus malingering versus UTI versus less likely ACS versus less likely ICH versus other Narrative Course 57-year-old male since the ED via EMS for evaluation of 6-8 hours history of dizziness, chest tightness. Patient endorses chronic cough, no worse today. He is current smoker. Endorses chronic shortness of breath. He states that he' s felt generally weak for about 3 years. He complains of chronic pain of the left side secondary to partial pneumonectomy. He states that he is very anxious and requests medications. He states that he was feeling so tired that he tried taking some meth yesterday to feel better. He denies IVDA. Patient is afebrile, pulse 97, pulse oximeter 98 on room air, BP 116/71 on presentation. On exam patient has diminished lung sounds in the left lower lobe and very minimal end expiratory wheezing. Exam is otherwise unremarkable. EKG rate 88, sinus rhythm. DC interval 132, QRS 97, QTC 420 ms. Normal axis. No acute ST changes. Reviewed by Dr. Hill. CXR: No acute changes per radiology read. Troponin negative 1. CBC and CMP without concerning abnormalities. Of note the LFTs are elevated, this is chronic per record review. CT of the head reveals no acute disease. The patient refused Toradol and requested narcotic pain medications multiple times. I reviewed E force. Patient is prescribed multiple narcotic pain medications, last filled on 12/18/17. I suspect he is malingering for pain medications. An any case the workup is completely negative. I feel that the patient is safe for discharge. He is stable and discharged home. Diagnosis Primary Impression: Rib pain on left side Referrals: Pain Management Arm[facility] Varnisher Additional Instructions: Rest, hydrate. Return to normal, gentle activity is as tolerated. The primary care provider or pain management provider. Return to the ED for worsening symptoms or any urgent or emergent medical condition. Disposition: 01 DISCHARGE HOME Condition: Stable Leda Hunter Jan 14, 2018 20:08
[2018-01-14 20:14] LABS: HEMATOCRIT 44.4 % (39.0-51.0); HEMOGLOBIN 15.7 GM/DL (13.0-17.0); MEAN CELL VOLUME 91.5 FL (80.0-100.0); MEAN CORPUSCULAR HEMOGLOBIN 32.4 PG (27.0-34.0); MEAN CORPUSCULAR HGB CONC 35.4 % (32.0-36.0); MEAN PLATELET VOLUME 9.1 FL (7.0-11.0); PLATELET COUNT 121 TH/MM3 (150-450); RED BLOOD COUNT 4.85 MIL/MM3 (4.50-5.90); RED CELL DISTRIBUTION WIDTH 13.4 % (11.6-17.2); WHITE BLOOD COUNT 5.6 TH/MM3 (4.0-11.0)
--- NOTE | 2018-01-14 20:32 | RADRPT ---
EXAM DATE/TIME: 01/14/2018 20:11 [facility] COMPARISON: CHEST SINGLE AP, July 09, 2017, 15:16. INDICATIONS : Palpitations. MEDICAL HISTORY : None. SURGICAL HISTORY : None. ENCOUNTER: Initial ACUITY: 1 day PAIN SCORE: 0/10 LOCATION: Bilateral chest FINDINGS: The heart size is normal. The lungs are clear. There is an anterior cervical fusion plate at the lowe r cervical spine. There is an old seventh left rib fracture. CONCLUSION: No acute disease. Lb Day MD on January 14, 2018 at 20:29 Board Certified Radiologist. This report was verified electronically.
[2018-01-14 20:44] LABS: ALKALINE PHOSPHATASE 79 U/L (45-117); ALT (GPT) 237 U/L (12-78); TOTAL BILIRUBIN ADULT 0.7 MG/DL (0.2-1.0); TOTAL PROTEIN 8.3 GM/DL (6.4-8.2)
[2018-01-14 20:50] LABS: ALBUMIN 3.4 GM/DL (3.4-5.0); AST (GOT) 194 U/L (15-37); BICARBONATE 28.3 MEQ/L (21.0-32.0); BLOOD UREA NITROGEN 17 MG/DL (7-18); CALCIUM 9.2 MG/DL (8.5-10.1); CHLORIDE 104 MEQ/L (98-107); CREATININE 0.91 MG/DL (0.60-1.30); GLOMERULAR FILTRATION RATE 86 ML/MIN (>89); GLUCOSE,RANDOM 69 MG/DL (74-106); SODIUM (NA) 139 MEQ/L (136-145)
--- NOTE | 2018-01-14 21:01 | RADRPT ---
EXAM DATE/TIME: 01/14/2018 20:18 [facility] COMPARISON: CT BRAIN W/O CONTRAST, January 29, 2016, 1:35. INDICATIONS : Dizziness. RADIATION DOSE: 36.33 CTDIvol (mGy) ; Patient motion MEDICAL HISTORY : Hypertension. Carcinoma, lung. Hepatitis C.Drug abuse SURGICAL HISTORY : None. ENCOUNTER: Initial ACUITY: 1 day PAIN SCALE: 0/10 LOCATION: cranial TECHNIQUE: Multiple contiguous axial images were obtained of the head. Using automated exposure control and adj ustment of the mA and/or kV according to patient size, radiation dose was kept as low as reasonably a chievable to obtain optimal diagnostic quality images. DICOM format image data is available electro nically for review and comparison. FINDINGS: CEREBRUM: The ventricles are normal for age. No evidence of midline shift, mass lesion, hemorrhage or acute in farction. No extra-axial fluid collections are seen. POSTERIOR FOSSA: The cerebellum and brainstem are intact. The 4th ventricle is midline. The cerebellopontine angle i s unremarkable. EXTRACRANIAL: The visualized portion of the orbits is intact. SKULL: The calvaria is intact. No evidence of skull fracture. CONCLUSION: No acute disease. Lb Day MD on January 14, 2018 at 20:58 Board Certified Radiologist. This report was verified electronically.
[2018-01-14 22:28] LABS: INTERNATIONAL NORMALIZED RATIO 1.1 RATIO; PROTHROMBIN TIME - PATIENT 10.7 SEC (9.8-11.6)
--- NOTE | 2018-01-15 12:23 | EKG ---
Date Performed: 01/14/2018 Time Performed: 20:31:29 PTAGE: 57 years EKG: Sinus rhythm POSSIBLE RIGHT VENTRICULAR CONDUCTION DELAY MINIMAL VOLTAGE CRITERIA FOR LVH, CONSIDER NORMAL VARIAN T BORDERLINE ECG PREVIOUS TRACING : 07/09/2017 14.50 Since the previous tracing, no significant change noted DOCTOR: Jaswinder Shafer Interpretating Date/Time 01/15/2018 12:22:06
== END 2018-01-14 23:05 | disposition home or self-care (01) ==
LOC: NEDAMB 17:20
DX: R07.81 Pleurodynia (principal); R42 Dizziness and giddiness; R06.02 Shortness of breath; I10 Essential (primary) hypertension; Z72.0 Tobacco use
CPT/HCPCS: 70450; 71045; 80053; 84484; 85027; 85610; 85730; 93005; 96374; 99285; J2405; J7030

== ENCOUNTER 2018-02-23 16:57 | Observation (INO) | payer MEDICARE, OTHER ==
[2018-02-23] MEDS: IOHEXOL 350 MG/ML 10 ML VIAL (for RAD DIAG) IVCONTRAST (16:58)
[2018-02-23] MEDS: MORPHINE SULFATE 4 MG/ML INJ IV PUSH ×2 (19:45→21:43)
[2018-02-23 20:01] LABS: BASOPHIL % 0.8 % (0.0-2.0); EOSINOPHIL # 0.1 TH/MM3 (0-0.4); EOSINOPHIL % 1.4 % (0.0-4.0); HEMATOCRIT 43.2 % (39.0-51.0); HEMO FLAGS DIFF FINAL; HEMOGLOBIN 14.8 GM/DL (13.0-17.0); LYMPH % 35.9 % (9.0-44.0); LYMPHOCYTE # 2.1 TH/MM3 (1.0-4.8); MEAN CELL VOLUME 92.7 FL (80.0-100.0); MEAN CORPUSCULAR HEMOGLOBIN 31.8 PG (27.0-34.0); MEAN CORPUSCULAR HGB CONC 34.3 % (32.0-36.0); MEAN PLATELET VOLUME 9.4 FL (7.0-11.0); MONO % 10.3 % (0.0-8.0); MONOCYTE # 0.6 TH/MM3 (0-0.9); NEUT % 51.6 % (16.0-70.0); PLATELET COUNT 136 TH/MM3 (150-450); RED BLOOD COUNT 4.66 MIL/MM3 (4.50-5.90); RED CELL DISTRIBUTION WIDTH 14.1 % (11.6-17.2); WHITE BLOOD COUNT 5.8 TH/MM3 (4.0-11.0)
[2018-02-23 20:10] LABS: BILIRUBIN, URINE NEG (NEG); BLOOD, URINE NEG (NEG); COMMENT (UR) CULT NOT INDICATED; CULTURE IF INDICATED CULT NOT INDICATED; GLUCOSE,URINE NEG (NEG); KETONE, URINE NEG (NEG); NITRITE,URINE NEG (NEG); SQUAMOUS EPITHELIAL CELL URINE 1 /hpf (0-5); URINE COLOR YELLOW (YELLW/STRAW); URINE LEUKOCYTE ESTERASE NEG (NEG)
[2018-02-23 20:18] LABS: ALBUMIN 3.4 GM/DL (3.4-5.0); ANION GAP 8 MEQ/L (5-15); AST (GOT) 58 U/L (15-37); BICARBONATE 23.4 MEQ/L (21.0-32.0); BLOOD UREA NITROGEN 19 MG/DL (7-18); CHLORIDE 107 MEQ/L (98-107); CREATININE 0.86 MG/DL (0.60-1.30); GLOMERULAR FILTRATION RATE 92 ML/MIN (>89); GLUCOSE,RANDOM 101 MG/DL (74-106); MAGNESIUM 1.9 MG/DL (1.5-2.5); POTASSIUM 4.5 MEQ/L (3.5-5.1); SODIUM (NA) 138 MEQ/L (136-145)
[2018-02-23 20:22] LABS: ALKALINE PHOSPHATASE 94 U/L (45-117); ALT (GPT) 55 U/L (12-78); TOTAL BILIRUBIN ADULT 0.5 MG/DL (0.2-1.0); TOTAL PROTEIN 8.2 GM/DL (6.4-8.2)
[2018-02-23] MEDS ORDERED: MORPHINE SULFATE 2 MG/ML SYRINGE IV PUSH (21:15)
[2018-02-23] MEDS ORDERED: SODIUM CHLORIDE 0.9% FLUSH 10 ML FLUSH IV FLUSH (21:30)
[2018-02-23] MEDS: MORPHINE SULFATE 15 MG CONTROLLED RELEASE TAB PO (22:13)
[2018-02-23 22:27] LABS: AMPHETAMINE, URINE POS (NEG); BARBITURATES, URINE NEG (NEG); BENZODIAZEPINE,URINE NEG (NEG); CANNABINOIDS, URINE NEG (NEG); COCAINE, URINE POS (NEG)
[2018-02-24] MEDS: cloNIDine HCL 0.1 MG TAB PO (01:29)
[2018-02-24] MEDS: LISINOPRIL 20 MG TAB PO ×3 (02:00→22:13)
[2018-02-24] MEDS: KETOROLAC TROMETHAMINE 30 MG/ML (IVP) VIAL IV PUSH ×2 (02:23→14:41)
[2018-02-24] MEDS: CYCLOBENZAPRINE HCL 10 MG TAB PO (02:24)
[2018-02-24] MEDS: MORPHINE SULFATE 15 MG CONTROLLED RELEASE TAB PO ×2 (03:08→08:46)
[2018-02-24 07:11] LABS: AUTOMATED NEUTROPHIL # 2.4 TH/MM3 (1.8-7.7); BASOPHIL # 0.1 TH/MM3 (0-0.2); BASOPHIL % 0.9 % (0.0-2.0); EOSINOPHIL # 0.2 TH/MM3 (0-0.4); HEMATOCRIT 41.3 % (39.0-51.0); HEMO FLAGS DIFF FINAL; HEMOGLOBIN 14.2 GM/DL (13.0-17.0); LYMPH % 49.3 % (9.0-44.0); LYMPHOCYTE # 3.3 TH/MM3 (1.0-4.8); MEAN CELL VOLUME 93.1 FL (80.0-100.0); MEAN CORPUSCULAR HEMOGLOBIN 32.1 PG (27.0-34.0); MEAN CORPUSCULAR HGB CONC 34.4 % (32.0-36.0); MEAN PLATELET VOLUME 9.2 FL (7.0-11.0); MONOCYTE # 0.7 TH/MM3 (0-0.9); NEUT % 35.8 % (16.0-70.0); PLATELET COUNT 121 TH/MM3 (150-450); RED BLOOD COUNT 4.43 MIL/MM3 (4.50-5.90); RED CELL DISTRIBUTION WIDTH 14.3 % (11.6-17.2); WHITE BLOOD COUNT 6.6 TH/MM3 (4.0-11.0)
[2018-02-24 07:27] LABS: ANION GAP 7 MEQ/L (5-15); BLOOD UREA NITROGEN 16 MG/DL (7-18); CALCIUM 8.8 MG/DL (8.5-10.1); CHLORIDE 107 MEQ/L (98-107); CREATININE 0.84 MG/DL (0.60-1.30); GLOMERULAR FILTRATION RATE 94 ML/MIN (>89); GLUCOSE,RANDOM 92 MG/DL (74-106); POTASSIUM 3.8 MEQ/L (3.5-5.1); SODIUM (NA) 138 MEQ/L (136-145)
[2018-02-24] MEDS: SODIUM CHLORIDE 0.9% FLUSH 10 ML FLUSH IV FLUSH ×2 (08:44→22:23)
[2018-02-24] MEDS: ZIPRASIDONE HCL 40 MG CAP PO ×2 (08:45→17:46)
[2018-02-24] MEDS: busPIRone HCL 10 MG TAB PO ×2 (08:45→22:23)
[2018-02-24] MEDS: FLUoxetine HCL 20 MG CAP PO (08:46)
[2018-02-24] MEDS: clonazePAM 0.5 MG TAB PO ×3 (08:48→17:45)
[2018-02-25] MEDS: busPIRone HCL 10 MG TAB PO (09:04)
[2018-02-25] MEDS: LISINOPRIL 20 MG TAB PO (09:04)
[2018-02-25] MEDS: FLUoxetine HCL 20 MG CAP PO (09:04)
[2018-02-25] MEDS: MORPHINE SULFATE 15 MG CONTROLLED RELEASE TAB PO (09:04)
[2018-02-25] MEDS: ZIPRASIDONE HCL 40 MG CAP PO (09:04)
[2018-02-25] MEDS: clonazePAM 0.5 MG TAB PO ×2 (09:04→12:17)
[2018-02-25] MEDS: SODIUM CHLORIDE 0.9% FLUSH 10 ML FLUSH IV FLUSH (09:05)
== END 2018-02-25 15:58 | disposition home or self-care (01) ==
LOC: NEPHCDU 02-24 00:56 → NEPD 16:57 → NEDA 21:25
DX: M54.5 Low back pain (principal); R55 Syncope and collapse; I49.8 Other specified cardiac arrhythmias; G89.4 Chronic pain syndrome; Q61.02 Congenital multiple renal cysts; R94.31 Abnormal electrocardiogram [ECG] [EKG]; I10 Essential (primary) hypertension; B19.20 Unspecified viral hepatitis C without hepatic coma; K74.60 Unspecified cirrhosis of liver; F20.9 Schizophrenia, unspecified; F32.9 Major depressive disorder, single episode, unspecified; F41.9 Anxiety disorder, unspecified; F17.200 Nicotine dependence, unspecified, uncomplicated; Z79.899 Other long term (current) drug therapy; Z85.118 Personal history of other malignant neoplasm of bronchus and lung; Z90.2 Acquired absence of lung [part of]; W19.XXXA Unspecified fall, initial encounter; W22.09XA Striking against other stationary object, initial encounter
CPT/HCPCS: 72132; 74177; 80048; 80053; 80307; 81001; 83735; 85025; 93005; 93225; 93226; 93306; 93880; 95819; 96374; 96375; 96376; 97161-GP; 99285-25

== ENCOUNTER 2018-04-04 06:41 | Emergency (ER) | payer MEDICARE, OTHER ==
[~2018-04-04] VITALS: Ht 180.3 cm; Wt 70.0 kg
[~2018-04-04 06:41] MED LIST changes: -AUGM500T7 PO; +CYCL10TA PO
[2018-04-04 06:45] VITALS: BP 162/72; PULSE 84; RESP 16; TEMP 98; O2SAT 99
[2018-04-04] MEDS ORDERED: RABIES IMMUNE GLOBULIN INJ 1,500 UNITS/10 ML VIAL IM ONE (07:30)
[2018-04-04] MEDS ORDERED: RABIES VACCINE HUMAN DIPL CELL 2.5 UNITS/ML SYRINGE IM ONE (07:30)
[2018-04-04] MEDS ORDERED: IBUPROFEN 600 MG TAB PO ONE (07:30)
--- NOTE | 2018-04-04 07:31 | PD ---
HPI Chief Complaint: Bite or Sting Time Seen by Provider: 07:22 Travel History International Travel<30 days: No Contact w/Intl Traveler<30days: No Traveled to known affect area: No History of Present Illness HPI 57-year-old male patient with history of hypertension, presents to the ER today because he states that he was bitten by a dog on the foot last night. He states that he was also been on the arms and hand but these all operations, the foot was the biggest bite. He states that he was an unknown dog, however, the dog did have a collar. He states that he was in his neighborhood but in an area he usually does not go to, and he states that the dog was not cleaned by an patient liaison. He states that he last had tetanus shot 3 years ago. Modifying Factors: None Associated Signs & Symptoms: Dog bite to the left foot Risk Factors: None PFSH Past Medical History Arthritis: Yes (knees and back) Depression: Yes Heart Rhythm Problems: No Cancer: Yes (LUNG) Cardiac Catheterization: No Cardiovascular Problems: Yes High Cholesterol: No Congestive Heart Failure: No Diabetes: No Diminished Hearing: No Endocrine: No Gastrointestinal Disorders: No Genitourinary: No Hepatitis: Yes (C) Hiatal Hernia: No Hypertension: Yes Immune Disorder: No Medical other: Yes (NECK AND BACK, ARTHRITIS) Musculoskeletal: Yes (MUSCLE SPASM, ARTHRITIS) Neurologic: Yes (ENCEPHALOPATHY) Psychiatric: Yes (SCHIZOPHRENIA, DRUG INDUCED MOOD DISORDER) Reproductive: No Respiratory: Yes Immunizations Current: Yes Schizophrenia: Yes Thyroid Disease: No Influenza Vaccination: Yes Past Surgical History AICD: No Cardiac Surgery: No Cholecystectomy: Yes Coronary Artery Bypass Graft: No Ear Surgery: No Endocrine Surgery: No Eye Surgery: No Genitourinary Surgery: No Gynecologic Surgery: No Joint Replacement: No Neurologic Surgery: Yes (CERVICAL NECK FUSION) Oral Surgery: No Pacemaker: No Thoracic Surgery: Yes (PARTIAL LL LUNG REMOVAL) Other Surgery: Yes Social History Alcohol Use: No Tobacco Use: Yes Substance Use: Yes (METH, COCAINE) Allergies-Medications (Allergen,Severity, Reaction): Coded Allergies: pregabalin (Unverified Adverse Reaction, Mild, MAKES HIM DROWSY, 04/04/18) Reported Meds & Prescriptions Reported Meds & Active Scripts Active Reported Morphine ER (Morphine Sulfate) 15 Mg Tab 15 Mg PO BID Geodon (Ziprasidone) 40 Mg Cap 40 Mg PO BID Hydrocodone-Acetaminophen 10-325 mg Tab 1 Tab PO Q4H PRN Ropinirole 0.5 Mg Tab 0.5 Mg PO TID Lisinopril 20 Mg Tab 20 Mg PO BID Fluoxetine (Fluoxetine HCl) 40 Mg Cap 40 Cap PO DAILY Clonazepam 0.5 Mg Tab 0.5 Mg PO TID Buspirone (Buspirone HCl) 30 Mg Tab 30 Mg PO BID Review of Systems Except as stated in HPI: all other systems reviewed are Neg Physical Exam Narrative GENERAL: Well-developed middle-age male patient currently in moderate distress. Awake and oriented 3. SKIN: Focused skin assessment warm/dry. There are several abrasions to his arms and right hand but otherwise no significant lacerations. There is a 5 cm laceration to the bottom of his lateral left foot dorsum. There is ecchymosis to the lateral foot. Mildly tender to palpation. Neurovascularly intact. HEAD: Atraumatic. Normocephalic. EYES: Pupils equal and round. No scleral icterus. No injection or drainage. ENT: No nasal bleeding or discharge. Mucous membranes pink and moist. NECK: Trachea midline. No JVD. CARDIOVASCULAR: Regular rate and rhythm. No murmur appreciated. RESPIRATORY: No accessory muscle use. Clear to auscultation. Breath sounds equal bilaterally. GASTROINTESTINAL: Abdomen soft, non-tender, nondistended. Hepatic and splenic margins not palpable. MUSCULOSKELETAL: No obvious deformities. No clubbing. No cyanosis. No edema. NEUROLOGICAL: Awake and alert. No obvious cranial nerve deficits. Motor grossly within normal limits. Normal speech. PSYCHIATRIC: Appropriate mood and affect; insight and judgment normal. Data Data Last Documented VS Vital Signs Date Time Temp Pulse Resp B/P (MAP) Pulse Ox O2 Delivery O2 Flow Rate FiO2 04/04/18 06:45 98.0 84 16 162/72 (102) 99 Orders Orders Foot, Limited (2vws) (04/04/18 07:22) Ibuprofen (Motrin) (04/04/18 07:30) Rabies Vaccine Human Cell Inj (Imovax In (04/04/18 07:30) Rabies Immune Globulin Inj (Hyperrab S/D (04/04/18 07:30) Tramadol (Ultram) (04/04/18 09:00) MDM Medical Decision Making Medical Screen Exam Complete: Yes Emergency Medical Condition: Yes Medical Record Reviewed: Yes Differential Diagnosis Dog bite to the left foot/rabies post exposure vaccination Narrative Course Patient's tetanus shot is up-to-date. He was given rabies immunoglobulin and vaccine considering that this is an unknown dog. At this point, he does have a significant laceration on his left foot, with a 2 cm open area. However, concerning it is a dog bite, I am going to refrain from suturing this wound.. I have talked to the patient regarding the benefits and risk of suturing the wound and he is comfortable with me not suturing it. He will need further rabies vaccination on days 3, 7, and 14. He can return to the ER to do this or to follow-up with the health department for this as well. He will be given Augmentin to prevent further infections. Return for any signs of infection, and as needed. The plan has been discussed with him and he states understanding. Diagnosis Primary Impression: Dog bite of left foot Additional Impression: Need for post exposure prophylaxis for rabies Med/Other Pt SpecificInfo: Prescription(s) given Scripts Tramadol-Acetaminophen (Tramadol-Acetaminophen) 37.5-325 mg Tab 1 TAB PO Q6H Y for PAIN GREATER THAN 6, #7 TAB 0 Refills Prov: Julianne Pang MD 04/04/18 Ibuprofen (Ibuprofen) 800 Mg Tab 800 MG PO Q8H Y for Pain/Inflammation, #20 TAB 0 Refills Prov: Julianne Pang MD 04/04/18 Amoxicillin-Clavulanate (Augmentin) 875-125 Mg Tab 1 TAB PO BID for Infection for 7 Days, #14 TAB 0 Refills Prov: Julianne Pang MD 04/04/18 Disposition: 01 DISCHARGE HOME Condition: Stable Julianne Pang MD Apr 04, 2018 07:31
--- NOTE | 2018-04-04 07:47 | RADRPT ---
EXAM DATE: 04/04/2018 7:39 AM EDT AGE/SEX: 57 years / Male INDICATIONS: Dog bite to left foot. Bite kyle on bottom of foot. CLINICAL DATA: This is the patient's initial encounter. Patient reports that signs and symptoms have been present for 1 day and indicates a pain score of 10/10. MEDICAL/SURGICAL HISTORY: None. None. COMPARISON: No prior exams available for comparison. FINDINGS: 2 views of the left foot demonstrate no fracture or dislocation. Mineralization is within normal limi ts. The Lisfranc joint appears intact. No soft tissue abnormality or radiopaque foreign body is ident ified. CONCLUSION: No acute left foot abnormality is identified. No radiopaque foreign body is identified in the area of injury. Electronically signed by: Lb Mcintosh MD 04/04/2018 7:46 AM EDT
[2018-04-04] MEDS ORDERED: traMADol HCL 50 MG TAB PO ONE (09:00)
[2018-04-04] MEDS ORDERED: AUGM875T3 PO (09:01)
[2018-04-04] MEDS ORDERED: TRAM-388 PO (09:01)
[2018-04-04] MEDS ORDERED: IBUP1TAB7 PO (09:01)
[2018-04-04] MEDS ORDERED: AMOXICILLIN/CLAVULANATE K 875 MG TAB PO ONE (09:15)
== END 2018-04-04 09:43 | disposition home or self-care (01) ==
LOC: NEPE 06:41
DX: S91.352A Open bite, left foot, initial encounter (principal); F15.90 Other stimulant use, unspecified, uncomplicated; F14.90 Cocaine use, unspecified, uncomplicated; F32.9 Major depressive disorder, single episode, unspecified; I10 Essential (primary) hypertension; F20.9 Schizophrenia, unspecified; F19.94 Other psychoactive substance use, unspecified with psychoactive substance-induced mood disorder; W54.0XXA Bitten by dog, initial encounter; Z23 Encounter for immunization; Z79.899 Other long term (current) drug therapy; Z86.19 Personal history of other infectious and parasitic diseases; Z88.8 Allergy status to other drugs, medicaments and biological substances; Z72.0 Tobacco use
CPT/HCPCS: 73620; 90375; 90471; 90675; 96372; 99283; E0113

== ENCOUNTER 2018-06-22 10:40 | Observation (INO) ==
--- NOTE | 2018-06-22 10:53 | ED ---
HPI General Chief Complaint: Chest Pain Stated Complaint: Chest pain Time Seen by Provider: 06/22/18 10:47 Source: patient and EMS Mode of arrival: EMS Limitations: no limitations History of Present Illness HPI narrative: The patient is a 57-year-old male that was brought in by EMS for chest pain. He states that his pain started yesterday morning continued throughout the day yesterday and continued today. He has history of left lower lobectomy due to lung CA. Chronic smoker still smokes. Lost over 50 pounds in the past 3 years. Reports productive cough with dark sputum MD complaint: chest pain Complete Quality Measures for STEMI Alert Patients STEMI Alert: No Onset (ago): day(s) (1) Duration: intermittent Pain location: substernal Severity: moderate Severity scale (1-10): 5 Quality: tightness and heaviness Pain radiation: none Relieving factors: nitroglycerin Associated symptoms: dyspnea, syncope (Had one episode yesterday) and palpitations Treatments prior to arrival chest pain: aspirin (324mg) and nitroglycerin (x1) Related Data Home Medications Medication Instructions Recorded Confirmed fluoxetine [Prozac] 40 mg PO DAILY 06/22/18 06/22/18 lisinopril 20 mg PO DAILY 06/22/18 06/22/18 Allergies Allergy/AdvReac Type Severity Reaction Status Date / Time pregabalin AdvReac Mild MAKES HIM Unverified 04/04/18 06:43 DROWSY Review of Systems ROS: all other systems reviewed are negative PMFSH History History Provided By: Patient Medical History Medical History Abdominal aortic aneurysm (AAA) 3.0 cm to 5.5 cm in diameter in male (Acute) COPD (chronic obstructive pulmonary disease) (Acute) Hepatitis C (Acute) History of lung cancer (Acute) Hypertension (Acute) Osteoarthritis (Acute) Polysubstance abuse (Acute) Schizophrenia (Acute) Surgical History Surgical History H/O knee surgery (Acute) H/O neck surgery (Acute) History of cholecystectomy (Acute) History of lobectomy of lung (Acute) Family History Family History Other Hypertension Social History Social History Substance History: Active Abuse Second Hand Smoke Exposure: Yes Smoking Status: Current every day smoker Tobacco Type: Cigarettes How Often Do You Have a Drink Containing Alcohol: Monthly or less Recent Travel in [facility] within the Last 8 Weeks: No Recent Out of Country Travel within the Last 8 Weeks: No Exam Narrative Exam Narrative: GENERAL: Alert and oriented in no distress. Cachectic underweight. Appears older than age. SKIN: Focused skin assessment warm/dry. Poor turgor HEAD: Atraumatic. Normocephalic. EYES: Pupils equal and round. No scleral icterus. No injection or drainage. ENT: No nasal bleeding or discharge. Mucous membranes pink and moist. NECK: Trachea midline. No JVD. CARDIOVASCULAR: Regular rhythm. Tachycardia no murmur appreciated. RESPIRATORY: No accessory muscle use. Clear to auscultation. Decreased breath sounds bilaterally. No wheezing GASTROINTESTINAL: Abdomen soft, non-tender, nondistended. Hepatic and splenic margins not palpable. MUSCULOSKELETAL: No obvious deformities. No clubbing. No cyanosis. No edema. NEUROLOGICAL: Awake and alert. No obvious cranial nerve deficits. Motor grossly within normal limits. Normal speech. PSYCHIATRIC: Appropriate mood and affect; insight and judgment normal. Course Reevaluation(s) Reevaluation #1: Patient states that he is having increased headache now he needs something for his pain. Also states he still has chest pain but not as intense as when he came in. Time: 14:09 Initial Documented Vital Signs Temperature 97.9 F 06/22/18 10:47 Pulse Rate 84 06/22/18 10:47 Respiratory Rate 17 06/22/18 10:47 Blood Pressure 101/64 06/22/18 10:47 Pulse Oximetry 100 06/22/18 10:47 Last Documented Vital Signs Temperature 97.9 F 06/22/18 10:47 Pulse Rate 81 06/22/18 14:29 Respiratory Rate 15 06/22/18 14:29 Blood Pressure 101/60 06/22/18 11:54 Pulse Oximetry 97 06/22/18 11:54 Medical Decision Making MDM Narrative Medical decision making narrative: Initial workup was negative for ST elevation CT or an an STEMI however he is positive for amphetamines and cocaine again which may have caused his chest pain. Patient had similar presentation in the past. No signs of infectious process. Breathing treatment given. He initially denied doing any illicit drugs. Medical Screen Exam Complete: Yes Emergency Medical Condition: Yes Lab Data Lab results reviewed: Yes I reviewed the patient's lab results. Result diagrams: 06/22/18 11:00 09/03/18 11:00 Lab Results 06/22/18 06/22/18 06/22/18 Range/Units 11:00 11:00 11:00 WBC 6.5 (4.0-11.0) th/mm3 RBC 4.39 L (4.50-5.90) mil/mm3 Hgb 14.5 (13.0-17.0) gm/dL Hct 42.0 (39.0-51.0) % MCV 95.7 (80.0-100.0) fL MCH 33.0 (27.0-34.0) pg MCHC 34.5 (32.0-36.0) % RDW 13.0 (11.6-17.2) % Plt Count 154 (150-450) th/mm3 MPV 8.6 (7.0-11.0) fL Neut % (Auto) 42.7 (16.0-70.0) % Lymph % (Auto) 37.5 (9.0-44.0) % [place] % (Auto) 14.9 H (0.0-8.0) % Eos % (Auto) 4.2 H (0.0-4.0) % Baso % (Auto) 0.7 (0.0-2.0) % Neut # (Auto) 2.8 (1.8-7.7) th/mm3 Lymph # (Auto) 2.5 (1.0-4.8) th/mm3 [place] # (Auto) 1.0 H (0.0-0.9) th/mm3 Eos # (Auto) 0.3 (0.0-0.4) th/mm3 Baso # (Auto) 0.0 (0.0-0.2) th/mm3 WBC Differential . Differential Comment Auto diff final PT 11.0 (9.8-11.6) sec INR 1.1 Ratio APTT 23.6 L (24.3-30.1) sec Sodium (136-145) meq/L Potassium (3.5-5.1) meq/L Chloride (98-107) meq/L Carbon Dioxide (21.0-32.0) meq/L Anion Gap (5-15) meq/L BUN (7-18) mg/dL Creatinine (0.60-1.30) mg/dL Estimated GFR (>89) mL/min Random Glucose (74-106) mg/dL Calcium (8.5-10.1) mg/dL Total Bilirubin (0.2-1.0) mg/dL AST (15-37) U/L ALT (12-78) U/L Alkaline Phosphatase (45-117) U/L Total Creatine Kinase (39-308) U/L CK-MB (CK-2) (0.5-3.6) ng/mL Troponin I (0.02-0.05) ng/mL Total Protein (6.4-8.2) g/dL Albumin (3.4-5.0) g/dL Lipase Cancelled Urine Opiates Screen (Neg) Ur Barbiturates Screen (Neg) Ur Amphetamines Screen (Neg) U Benzodiazepines Scrn (Neg) Urine Cocaine Screen (Neg) U Cannabinoids Screen (Neg) Serum Alcohol Cancelled 06/22/18 06/22/18 Range/Units 11:00 14:40 WBC (4.0-11.0) th/mm3 RBC (4.50-5.90) mil/mm3 Hgb (13.0-17.0) gm/dL Hct (39.0-51.0) % MCV (80.0-100.0) fL MCH (27.0-34.0) pg MCHC (32.0-36.0) % RDW (11.6-17.2) % Plt Count (150-450) th/mm3 MPV (7.0-11.0) fL Neut % (Auto) (16.0-70.0) % Lymph % (Auto) (9.0-44.0) % [place] % (Auto) (0.0-8.0) % Eos % (Auto) (0.0-4.0) % Baso % (Auto) (0.0-2.0) % Neut # (Auto) (1.8-7.7) th/mm3 Lymph # (Auto) (1.0-4.8) th/mm3 [place] # (Auto) (0.0-0.9) th/mm3 Eos # (Auto) (0.0-0.4) th/mm3 Baso # (Auto) (0.0-0.2) th/mm3 WBC Differential Differential Comment PT (9.8-11.6) sec INR Ratio APTT (24.3-30.1) sec Sodium 138 (136-145) meq/L Potassium 3.4 L (3.5-5.1) meq/L Chloride 105 (98-107) meq/L Carbon Dioxide 25.1 (21.0-32.0) meq/L Anion Gap 8 (5-15) meq/L BUN 32 H (7-18) mg/dL Creatinine 2.23 H (0.60-1.30) mg/dL Estimated GFR 31 L (>89) mL/min Random Glucose 83 (74-106) mg/dL Calcium 8.5 (8.5-10.1) mg/dL Total Bilirubin 0.3 (0.2-1.0) mg/dL AST 53 H (15-37) U/L ALT 51 (12-78) U/L Alkaline Phosphatase 65 (45-117) U/L Total Creatine Kinase 141 (39-308) U/L CK-MB (CK-2) 4.3 H (0.5-3.6) ng/mL Troponin I Less than 0.02 L (0.02-0.05) ng/mL Total Protein 7.8 (6.4-8.2) g/dL Albumin 3.4 (3.4-5.0) g/dL Lipase 93 Urine Opiates Screen Neg (Neg) Ur Barbiturates Screen Neg (Neg) Ur Amphetamines Screen Pos H (Neg) U Benzodiazepines Scrn Neg (Neg) Urine Cocaine Screen Pos H (Neg) U Cannabinoids Screen Neg (Neg) Serum Alcohol Less than 3 Imaging Data Radiologist's impression: Chest X-Ray 06/22/18 10:48 CONCLUSION: Negative examination. Chest CT 06/22/18 12:16 CONCLUSION: 1. Aneurysmal dilatation of the ascending aorta. 2. Postsurgical changes and emphysema. ECG Data Attestation: I personally reviewed and interpreted this ECG as follows: Interpretation: Normal sinus rhythm with short SD interval. Left atrial enlargement. Normal axis. Left ventricular hypertrophy. No STEMI. Nonspecific ST-T wave abnormalities. Discharge Plan Discharge Disposition Patient Disposition: 30 Still Patient Discharge Condition Condition: Good Discharge Details Diagnosis: Cocaine abuse, PAUL (acute kidney injury), Amphetamine abuse, Chest pain Physicians Team ED Provider: Elfego Perez Primary Care Provider: Primary Care PhysiciCheyanne Attending Provider: Jed Batista Discharge Interventions Interventions: ED Discharge Assessment Last Done: 06/22/18 15:24 Status ED Status: Left Department Discharge Information Discharge Date/Time: 06/22/18 15:50
[2018-06-22 11:14] LABS: Baso % (Auto) 0.7 % (0.0-2.0); Eos # (Auto) 0.3 th/mm3 (0.0-0.4); Eos % (Auto) 4.2 % (0.0-4.0); Hemoglobin 14.5 gm/dL (13.0-17.0); Lymph # (Auto) 2.5 th/mm3 (1.0-4.8); Lymph % (Auto) 37.5 % (9.0-44.0); Mean Corpuscular HGB Conc 34.5 % (32.0-36.0); Mean Corpuscular Volume 95.7 fL (80.0-100.0); Mean Platelet Volume 8.6 fL (7.0-11.0); Mono % (Auto) 14.9 % (0.0-8.0); Neut # (Auto) 2.8 th/mm3 (1.8-7.7); Neut % (Auto) 42.7 % (16.0-70.0); Platelet Count 154 th/mm3 (150-450); Red Blood Count 4.39 mil/mm3 (4.50-5.90); White Blood Count 6.5 th/mm3 (4.0-11.0)
--- NOTE | 2018-06-22 11:18 | XR ---
EXAM DATE: 06/22/2018 11:11 AM EDT AGE/SEX: 57 years / Male INDICATIONS: Chest pain. Cough. Short of breath. CLINICAL DATA: This is the patient's initial encounter. Patient reports that signs and symptoms have been present for 1 week and indicates a pain score of 3/10. MEDICAL/SURGICAL HISTORY: None. None. COMPARISON: [facility] [place], CHEST SINGLE AP, 01/14/2018. . FINDINGS: A single AP view of the chest demonstrates the lungs to be symmetrically aerated without evidence of mass, infiltrate or effusion. The cardiomediastinal contours are unremarkable. ACDF hardware overlie s the cervical spine. Remote left seventh posterior rib fracture.. CONCLUSION: Negative examination. Electronically signed by: Greg Patel MD 06/22/2018 11:17 AM EDT
[2018-06-22 11:24] LABS: Activated Partial Thrombo Time 23.6 sec (24.3-30.1); INR 1.1 Ratio
[2018-06-22 11:26] LABS: Alanine Aminotransferase 51 U/L (12-78); Albumin 3.4 g/dL (3.4-5.0); Anion Gap 8 meq/L (5-15); Aspartate Aminotransferase 53 U/L (15-37); Blood Urea Nitrogen 32 mg/dL (7-18); Calcium 8.5 mg/dL (8.5-10.1); Carbon Dioxide 25.1 meq/L (21.0-32.0); Chloride 105 meq/L (98-107); Glomerular Filtration Rate 31 mL/min (>89); Glucose,Random 83 mg/dL (74-106); Lipase 93 U/L (73-393); Potassium 3.4 meq/L (3.5-5.1); Sodium 138 meq/L (136-145)
[2018-06-22 11:30] LABS: Alkaline Phosphatase 65 U/L (45-117); Creatine Kinase 141 U/L (39-308); Total Protein 7.8 g/dL (6.4-8.2)
[2018-06-22 11:43] LABS: Creatine Kinase MB 4.3 ng/mL (0.5-3.6)
[2018-06-22] MEDS ORDERED: Sod Chloride 0.9% Inj 1,000 ML IV.SIG ONE ×3 (12:20→13:56)
--- NOTE | 2018-06-22 13:29 | CT ---
EXAM DATE: 06/22/2018 1:23 PM EDT AGE/SEX: 57 years / Male INDICATIONS: Medial chest pain for two days. CLINICAL DATA: This is the patient's initial encounter. Patient reports that signs and symptoms have been present for 2 days and indicates a pain score of 6/10. MEDICAL/SURGICAL HISTORY: Carcinoma, lung. Lobectomy. neck and back surgery RADIATION DOSE: 6.18 CTDI (mGy) COMPARISON: [facility] [place]ST 1V SINGLE AP, 06/22/2018. . TECHNIQUE: Multiple contiguous axial images were obtained through the chest without contrast. Image s were obtained in suspended respiration using multiple row detector helical technique. Using automa ankush exposure control and adjustment of the mA and/or kV according to patient size, radiation dose was kept as low as reasonably achievable to obtain optimal diagnostic quality images. DICOM format imag e data is available electronically for review and comparison. FINDINGS: Atherosclerotic calcification of the aorta and coronary arteries identified. There is aneurysmal dila tation of the ascending aorta measuring 4.3 x 4 cm in AP and transverse dimension. No pleural or ravinder cardial effusions are seen. No adenopathy. ACDF hardware of the cervical spine. There is a fracture o f the left seventh posterior lateral rib, nonacute. There are emphysematous changes identified bilate rally. The patient is status post left lower lobectomy. CONCLUSION: 1. Aneurysmal dilatation of the ascending aorta. 2. Postsurgical changes and emphysema. Electronically signed by: Greg Patel MD 06/22/2018 1:27 PM EDT
[2018-06-22] MEDS ORDERED: Butalbital/APAP/Caff 50/325/40 MG Tablet PO ONE (13:57)
[2018-06-22] MEDS ORDERED: Bisacodyl 10 MG Supp RECTAL PRN (14:51)
[2018-06-22 15:03] LABS: Amphetamine Screen,Urine Pos (Neg); Barbiturate Screen,Urine Neg (Neg); Cannabinoid Screen,Urine Neg (Neg); Cocaine Screen,Urine Pos (Neg)
[2018-06-22 15:07] LABS: Opiate Screen,Urine Neg (Neg)
[2018-06-22] MEDS ORDERED: Acetaminophen 325 MG Tablet PO PRN (15:27)
--- NOTE | 2018-06-22 15:29 | P.HP ---
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 Patient is not a very good historian. Patient complains of constant midsternal nonradicular chest "pressure" that began yesterday morning. He reports associated dizziness, palpitations, diaphoresis, nausea and vomiting. He denies any worsening with activity. Patient states last time he vomited was yesterday. He denies any blood in the vomitus. When asked how many times he vomited patient states he does not know. He reports that he "fell out" at the bus stop yesterday but is unable to tell me for what length of time. He denies hitting his head. He states he has been eating and drinking his usual amount. He is currently living in a tent as he was evicted from his apartment a month ago. He is requesting pain medication for his osteoarthritis in his neck and back and states that he normally takes four hydrocodone daily. He states he was previously being seen by pain management physician who discharged him from the practice after he gave a sample of "dirty urine" about a month ago. When asked what he tested positive for he said amphetamines. Patient admits to amphetamine use a few days ago. He states he has not used cocaine in the past 3-4 weeks. He denies any recent illness or ill contacts. In the ED, chest x-ray was obtained and was unremarkable which was followed by chest CT to rule out PE which revealed 4.3 x 4 aneurysmal dilation but was otherwise unremarkable. Initial troponin was negative. EKG revealed nonspecific T-wave changes. CBC was unremarkable and chemistry panel revealed acute kidney injury with creatinine of 2.23. Serum alcohol is less than 3. Urine drug screen was ordered but unable to obtain specimen as of yet despite patient receiving 3 L of IV fluids. Patient was admitted in February of this year with similar complaints and tested positive for amphetamines and cocaine. Patient was seen in consultation by Dr. Nugent felt that his syncopal episode was secondary to substance abuse. Echo done during that admission revealed EF of 60-65% and moderate . - Diagnosis (1) Chest pain (2) Acute kidney injury Review of Systems All other systems reviewed negative except as stated in HPI PMFSH - History History Provided By: Patient, Medical Record - Medical History Medical History: Medical History (Last Updated 06/22/18 @ 15:55 by Mable Cano) Abdominal aortic aneurysm (AAA) 3.0 cm to 5.5 cm in diameter in male COPD (chronic obstructive pulmonary disease) Hepatitis C History of lung cancer Hypertension Osteoarthritis Polysubstance abuse Schizophrenia - Surgical History Surgical History: Surgical History (Last Updated 06/22/18 @ 15:08 by Mable Cano) H/O knee surgery H/O neck surgery History of cholecystectomy History of lobectomy of lung - Family History Family History: Family History (Last Updated 06/22/18 @ 15:08 by Mable Cano) Other Hypertension - Tobacco History Tobacco Use In Past 30 Days: Yes Smoking Status: Current every day smoker Tobacco Type: Cigarettes - Alcohol History How Often Do You Have a Drink Containing Alcohol: Monthly or less - Substance Use History Substance History: Active Abuse - Travel History Recent Travel in the [place] Within the Last 8 Weeks: No Recent Travel Out of the Country Within the Last 8 Weeks: No - Immunization History Tetanus Immunization: <5 Years Hx Influenza Vaccine This Season: Yes Medications and Allergies Active Medications: Active Medications Al Hydroxide/Mg Hydroxide (Milk Of Magnesia Liq) 30 ml PO Q12H PRN PRN Reason: Mild Constipation Bisacodyl (Dulcolax Supp) 10 mg RECTAL DAILY PRN PRN Reason: SEVERE CONSITIPATION Sodium Chloride (Ns Inj) 1,000 mls @ 100 mls/hr IV.CONT .Q10H HEMA Lactulose (Lactulose Liq) 30 ml PO DAILY PRN PRN Reason: SEVERE CONSITIPATION Non-Formulary Medication (Fluoxetine [Prozac]) 40 mg PO DAILY HEMA Ondansetron HCl (Zofran Inj) 4 mg IV.PUSH Q6H PRN PRN Reason: NAUSEA OR VOMITING Senna/Docusate Sodium (Gayatri-Colace) 1 tab PO BID EHMA Sennosides (Senokot) 17.2 mg PO Q12H PRN PRN Reason: Moderate Constipation Sodium Chloride (Ns Flush) 2 ml IV.FLUSH UNSCH PRN PRN Reason: FLUSH AFTER USING IV ACCESS Allergies Allergy/AdvReac Type Severity Reaction Status Date / Time pregabalin AdvReac Mild MAKES HIM Unverified 04/04/18 06:43 DROWSY Home Medications Medication Instructions Recorded Confirmed Type fluoxetine [Prozac] 40 mg PO DAILY 06/22/18 06/22/18 History lisinopril 20 mg PO DAILY 06/22/18 06/22/18 History Exam Vital signs: Vital Signs 06/22/18 10:47 06/22/18 10:53 06/22/18 11:54 Temperature 97.9 F Pulse Rate 84 80 Respiratory Rate 17 18 Blood Pressure 101/64 101/60 Pulse Oximetry 100 100 97 06/22/18 14:29 Temperature Pulse Rate 81 Respiratory Rate 15 Blood Pressure Pulse Oximetry Intake & Output 06/21/18 06/22/18 06/22/18 18:59 06:59 18:59 Intake Total 1000 / 1000 Balance 1000 / 1000 Weight 70.307 kg Intake: IV 1000 / 1000 NS Inj 1,000 ML @ Wide Open IV. 1000 / 1000 SIG BOLUS ONE Rx#:[id number] Narrative: GENERAL: WDWN male patient who appears much older than stated age, in no acute distress. Awake and alert. Appears comfortable. SKIN: Warm and dry. [place] tanned skin. HEAD: Atraumatic. Normocephalic. EYES: Pupils equal and round. No scleral icterus. No injection or drainage. ENT: No nasal bleeding or discharge. Dry mucus membranes. NECK: Trachea midline. CARDIOVASCULAR: Regular rate and rhythm. +murmur. RESPIRATORY: No accessory muscle use. Diminished breath sounds. Mild expiratory wheezing. GASTROINTESTINAL: Abdomen soft, non-tender, nondistended. Hepatic and splenic margins not palpable. MUSCULOSKELETAL: Extremities without clubbing, cyanosis, or edema. No obvious deformities. NEUROLOGICAL: Awake and alert. No obvious cranial nerve deficits. Motor grossly within normal limits. Able to move all extremities spontaneously. Normal speech. PSYCHIATRIC: Calm and cooperative; insight and judgment poor. Results - Labs CBC & Chem 7: 06/22/18 11:00 06/22/18 11:00 Labs: Laboratory Results - last 24 hr 06/22/18 06/22/18 06/22/18 11:00 11:00 11:00 WBC 6.5 RBC 4.39 L Hgb 14.5 Hct 42.0 MCV 95.7 MCH 33.0 MCHC 34.5 RDW 13.0 Plt Count 154 MPV 8.6 Neut % (Auto) 42.7 Lymph % (Auto) 37.5 [place] % (Auto) 14.9 H Eos % (Auto) 4.2 H Baso % (Auto) 0.7 Neut # (Auto) 2.8 Lymph # (Auto) 2.5 [place] # (Auto) 1.0 H Eos # (Auto) 0.3 Baso # (Auto) 0.0 WBC Differential . Differential Comment Auto diff final PT 11.0 INR 1.1 APTT 23.6 L Sodium Potassium Chloride Carbon Dioxide Anion Gap BUN Creatinine Estimated GFR Random Glucose Calcium Total Bilirubin AST ALT Alkaline Phosphatase Total Creatine Kinase CK-MB (CK-2) Troponin I Total Protein Albumin Lipase Cancelled Serum Alcohol Cancelled 06/22/18 11:00 WBC RBC Hgb Hct MCV MCH MCHC RDW Plt Count MPV Neut % (Auto) Lymph % (Auto) [place] % (Auto) Eos % (Auto) Baso % (Auto) Neut # (Auto) Lymph # (Auto) [place] # (Auto) Eos # (Auto) Baso # (Auto) WBC Differential Differential Comment PT INR APTT Sodium 138 Potassium 3.4 L Chloride 105 Carbon Dioxide 25.1 Anion Gap 8 BUN 32 H Creatinine 2.23 H Estimated GFR 31 L Random Glucose 83 Calcium 8.5 Total Bilirubin 0.3 AST 53 H ALT 51 Alkaline Phosphatase 65 Total Creatine Kinase 141 CK-MB (CK-2) 4.3 H Troponin I Less than 0.02 L Total Protein 7.8 Albumin 3.4 Lipase 93 Serum Alcohol Less than 3 - Imaging Impressions Chest X-Ray 06/22/18 10:48 CONCLUSION: Negative examination. Chest CT 06/22/18 12:16 CONCLUSION: 1. Aneurysmal dilatation of the ascending aorta. 2. Postsurgical changes and emphysema. Caprini VTE Risk Assessment Caprini VTE Risk Assessment: No/Low Risk (score <= 1) Caprini Risk Assessment Model: Point Value = 1 Point Value = 2 Point Value = 3 Point Value = 5 Age 41-60 Minor surgery BMI > 25 kg/m2 Swollen legs Varicose veins or History of unexplained or recurrent spontaneous Oral contraceptives or hormone replacement Sepsis (< 1 month) Serious lung disease, including pneumonia (< 1 month) Abnormal pulmonary function Acute myocardial infarction Congestive heart failure (< 1 month) History of inflammatory bowel disease Medical patient at bed rest Age 61-74 Arthroscopic surgery Major open surgery (> 45 min) Laparoscopic surgery (> 45 min) Malignancy Confined to bed (> 72 hours) Immobilizing plaster cast Central venous access Age >= 75 History of VTE Family history of VTE Factor V Leiden Prothrombin [id number] Lupus anticoagulant Anticardiolipin antibodies Elevated serum homocysteine Heparin-induced thrombocytopenia Other congenital or acquired thrombophilia Stroke (< 1 month) Elective arthroplasty Hip, pelvis, or leg fracture Acute spinal cord injury (< 1 month) Prophylaxis Regimen: Total Risk Factor Score Risk Level Prophylaxis Regimen 0-1 Low Early ambulation 2 Moderate Order ONE of the following: *Sequential Compression Device (SCD) *Heparin 5000 units SQ BID 3-4 Higher Order ONE of the following medications: *Heparin 5000 units SQ TID *Enoxaparin/Lovenox 40 mg SQ daily (WT < 150 kg, CrCl > 30 mL/min) *Enoxaparin/Lovenox 30 mg SQ daily (WT < 150 kg, CrCl > 10-29 mL/min) *Enoxaparin/Lovenox 30 mg SQ BID (WT < 150 kg, CrCl > 30 mL/min) AND/OR *Sequential Compression Device (SCD) 5 or more Highest Order ONE of the following medications: *Heparin 5000 units SQ TID (Preferred with Epidurals) *Enoxaparin/Lovenox 40 mg SQ daily (WT < 150 kg, CrCl > 30 mL/min) *Enoxaparin/Lovenox 30 mg SQ daily (WT < 150 kg, CrCl > 10-29 mL/min) *Enoxaparin/Lovenox 30 mg SQ BID (WT < 150 kg, CrCl > 30 mL/min) AND *Sequential Compression Device (SCD) Assessment and Plan - Assessment (1) Chest pain Code(s): R07.9 - Chest pain, unspecified Status: Acute (2) Acute kidney injury Code(s): N17.9 - Acute kidney failure, unspecified Status: Acute - Plan 57-year-old male admitted with complaints of chest pain and syncopal episode Chest pain r/o ACS Initial troponin neg EKG shows nonspecific T wave changes Patient is currently chest pain free -Continue to trend cardiac enzymes and EKGs -Supplemental oxygen -Aspirin 81 mg daily -NTG as needed for chest pain. Avoid morphine use secondary to concerns for drug seeking behavior -continuous cardiac monitoring -will not give BB due to recent cocaine use Syncope, suspect secondary to dehydration, polysubstance use Patient reports passing out yesterday while at bus stop similar complaint in February 2018, evaluated by Dr. Nugent, felt likely to be due to cocaine use Echo 03/06 EF 60-65%, mod aortic stenosis -check orthostatic BP measurements -monitor on cardiac telemetry -holter monitor PAUL, suspect secondary to dehydration Cr 2.23, BUN 32 Patient given 3 L IV fluid in the ED -Continue with IV fluid hydration -Avoid nephrotoxic agent, NSAIDS, IV contrast -Continue to monitor kidney function, repeat BMP in a.m. Hypokalemia, mild K 3.4 -po repletion ordered -repeat K level in am Hypertension -Unable to resume patient's home dose of lisinopril at this time secondary to PAUL -Patient's blood pressure is actually a little on the low side at this time. We will continue to monitor BP and adjust treatment accordingly -Clonidine prn with parameters History of poorly differentiated squamous cell carcinoma status post left upper lobectomy 2016 COPD, in mild exacerbation Ongoing tobaccoism CXR with no acute findings, images reviewed by me CT chest reviewed, significant for AAA -Patient advised on smoking cessation -scheduled Duonebs -monitor respiratory status Polysubstance abuse, hx of cocaine and amphetamine use History of alcohol abuse Hep C Patient admits to using amphetamines a few days ago and cocaine 3 weeks ago -Discussed importance of cessation from all drugs and alcohol -Urine drug screen pending Osteoarthritis Hx of ACDF Concern for drug-seeking behavior Patient recently discharged from his pain management clinic due to testing positive for amphetamines in his urine -Tylenol as needed for pain AAA, incidental finding CT chest revealed aneurysmal dilatation of the ascending aorta measuring 4.3 x 4 cm in AP and transverse dimension -Discussed with patient, recommended vascular surgery follow-up as outpatient. Strongly advised on smoking cessation. Homeless -Consult case management DVT prophylaxis -bilateral SCD/MARIO hose Code Status: FULL Discussed Condition With: patient, ED physician, Dr. Batista Discharge Planning: Likely patient will discharge in the next 24-48 hours if workup is negative
[2018-06-22] MEDS: Sod Chloride 0.9% Inj 1,000 ML IV.CONT SCH (16:04)
[2018-06-22 17:31] LABS: Creatine Kinase 125 U/L (39-308)
[2018-06-22] MEDS: Senna/Docusate Sodium 8.6/50 MG Tablet PO SCH (20:39)
--- NOTE | 2018-06-22 21:39 | ECG ---
Date Performed: 06/22/2018 Time Performed: 10:47:48 PTAGE: 57 years EKG: Sinus rhythm WITH SHORT MI INTERVAL POSSIBLE LEFT ATRIAL ENLARGEMENT POSSIBLE LEFT VENTRICULAR HYPERTROPHY ABNORM AL ECG NO PREVIOUS TRACING DOCTOR: Jim Hayes Interpretating Date/Time 06/22/2018 21:37:08
[2018-06-22 23:37] LABS: Creatine Kinase 105 U/L (39-308)
[2018-06-23] MEDS: Senna/Docusate Sodium 8.6/50 MG Tablet PO SCH ×2 (00:24→10:27)
[2018-06-23] MEDS: Sod Chloride 0.9% Inj 1,000 ML IV.CONT SCH ×2 (01:25→14:27)
[2018-06-23 06:52] LABS: Baso % (Auto) 0.7 % (0.0-2.0); Eos # (Auto) 0.2 th/mm3 (0.0-0.4); Eos % (Auto) 4.9 % (0.0-4.0); Hematocrit 38.4 % (39.0-51.0); Lymph % (Auto) 48.5 % (9.0-44.0); Mean Corpuscular HGB Conc 33.9 % (32.0-36.0); Mean Corpuscular Hemoglobin 32.9 pg (27.0-34.0); Mean Platelet Volume 8.6 fL (7.0-11.0); Mono # (Auto) 0.5 th/mm3 (0.0-0.9); Mono % (Auto) 11.9 % (0.0-8.0); Neut # (Auto) 1.4 th/mm3 (1.8-7.7); Platelet Count 109 th/mm3 (150-450); Red Blood Count 3.97 mil/mm3 (4.50-5.90); Red Cell Distribution Width 13.1 % (11.6-17.2); White Blood Count 4.2 th/mm3 (4.0-11.0)
[2018-06-23 07:27] LABS: Alanine Aminotransferase 42 U/L (12-78); Albumin 2.7 g/dL (3.4-5.0); Alkaline Phosphatase 55 U/L (45-117); Anion Gap 8 meq/L (5-15); Aspartate Aminotransferase 44 U/L (15-37); Blood Urea Nitrogen 21 mg/dL (7-18); Calcium 8.2 mg/dL (8.5-10.1); Carbon Dioxide 22.1 meq/L (21.0-32.0); Chloride 112 meq/L (98-107); Cholesterol 103 mg/dL (120-200); Glomerular Filtration Rate 82 mL/min (>89); Glucose,Random 83 mg/dL (74-106); HDL Cholesterol 25.1 mg/dL (40.0-60.0); LDL Cholesterol,Calculated 57 mg/dL (0-99); Potassium 4.6 meq/L (3.5-5.1); Sodium 142 meq/L (136-145); Total Protein 6.7 g/dL (6.4-8.2); Triglycerides 105 mg/dL (42-150)
--- NOTE | 2018-06-23 07:59 | ECG ---
Date Performed: 06/22/2018 Time Performed: 22:26:27 PTAGE: 57 years EKG: Sinus rhythm POSSIBLE RIGHT VENTRICULAR CONDUCTION DELAY BORDERLINE ECG PREVIOUS TRACING : 06/22/2018 10.47 No significant change from previous tracing noted. DOCTOR: Jim Hayes Interpretating Date/Time 06/23/2018 07:57:07
[2018-06-23] MEDS ORDERED: Lisinopril 20 MG Tablet PO SCH (09:00)
[2018-06-23] MEDS ORDERED: FLUoxetine 20 MG Capsule PO SCH (09:00)
[2018-06-23 11:54] VITALS: BP 118/64; TEMP 98.7; O2SAT 98
[2018-06-23 12:27] VITALS: RESP 19
[2018-06-23 12:48] VITALS: PULSE 97
--- NOTE | 2018-06-23 14:02 | P.PN ---
Subjective Interval history: follow up for cp and syncope: Denies any chest pain, indicates that it was resolved after using nebulizer. Was wheezing and short of breath. Blood pressure well controlled. Has Holter monitor. States that he was seen to see PCP (Dr. Hernandez) about a month ago. We discussed findings of abdominal aortic aneurysm of 4.2 cm. Denies any dizziness, no palpitations. Room air sats 98% Physical Exam Vital signs: Vital Signs 06/22/18 14:29 06/22/18 15:30 06/22/18 16:00 Temperature 98.0 F Pulse Rate 81 84 Respiratory Rate 15 18 16 Blood Pressure 104/58 L Pulse Oximetry 96 06/22/18 19:30 06/22/18 19:37 06/22/18 20:00 Temperature Pulse Rate 68 75 Respiratory Rate 20 16 Blood Pressure 111/60 Pulse Oximetry 93 L 100 100 06/22/18 23:38 06/23/18 03:31 06/23/18 07:44 Temperature 98.2 F 98.7 F 97.5 F L Pulse Rate 76 68 75 Respiratory Rate 16 16 20 Blood Pressure 107/63 124/68 134/69 Pulse Oximetry 97 99 98 06/23/18 08:00 06/23/18 09:00 06/23/18 11:53 Temperature 98.7 F Pulse Rate 75 77 Respiratory Rate 18 Blood Pressure 118/64 Pulse Oximetry 95 98 06/23/18 12:26 06/23/18 12:47 Temperature Pulse Rate 82 97 H Respiratory Rate 19 Blood Pressure Pulse Oximetry Intake & Output 06/22/18 06/23/18 06/23/18 18:59 06:59 18:59 Intake Total 2600 / 2600 1240 / 1240 Output Total Balance 2600 / 2600 1239 / 1239 Weight 70.307 kg 70.307 kg Intake: IV 1999 1000 / 1000 NS Inj 1,000 ML @ 100 mls/hr IV 1000 / 1000 .CONT .Q10H HEMA Rx#:[id number] NS Inj 1,000 ML @ Wide Open IV. 1999 SIG BOLUS ONE Rx#:[id number] Oral 600 / 600 240 / 240 Output: Urine Other: Date of Last Bowel Movement 06/21/18 06/21/18 Narrative: GENERAL: Well-nourished, well-developed patient in no apparent distress. SKIN: Warm and dry. HEAD: Atraumatic. Normocephalic. EYES: Pupils equal and round. No scleral icterus. No injection or drainage. ENT: No nasal bleeding or discharge. Mucous membranes pink and moist. NECK: Trachea midline. No JVD. CARDIOVASCULAR: Regular rate and rhythm. Soft murmur. RESPIRATORY: No accessory muscle use. Clear to auscultation. Breath sounds equal bilaterally. GASTROINTESTINAL: Abdomen soft, non-tender, nondistended. Hepatic and splenic margins not palpable. MUSCULOSKELETAL: Extremities without clubbing, cyanosis, or edema. No obvious deformities. NEUROLOGICAL: Awake and alert. No obvious cranial nerve deficits. Motor grossly within normal limits. Five out of 5 muscle strength in the arms and legs. Normal speech. PSYCHIATRIC: Appropriate mood and affect; insight and judgment normal. Results - Labs CBC & Chem 7: 06/23/18 05:52 06/23/18 05:52 Laboratory Results - last 24 hr 06/22/18 06/22/18 06/22/18 14:40 16:28 22:55 WBC RBC Hgb Hct MCV MCH MCHC RDW Plt Count MPV Neut % (Auto) Lymph % (Auto) [place] % (Auto) Eos % (Auto) Baso % (Auto) Neut # (Auto) Lymph # (Auto) [place] # (Auto) Eos # (Auto) Baso # (Auto) WBC Differential Differential Comment Sodium Potassium Chloride Carbon Dioxide Anion Gap BUN Creatinine Estimated GFR Random Glucose Calcium Total Bilirubin AST ALT Alkaline Phosphatase Total Creatine Kinase 125 105 Troponin I Less than 0.02 L Less than 0.02 L Total Protein Albumin Triglycerides Cholesterol LDL Cholesterol, Calc HDL Cholesterol Cholesterol/HDL Ratio TSH Urine Opiates Screen Neg Ur Barbiturates Screen Neg Ur Amphetamines Screen Pos H U Benzodiazepines Scrn Neg Urine Cocaine Screen Pos H U Cannabinoids Screen Neg 06/23/18 06/23/18 05:52 05:52 WBC 4.2 RBC 3.97 L Hgb 13.0 Hct 38.4 L MCV 97.0 MCH 32.9 MCHC 33.9 RDW 13.1 Plt Count 109 L MPV 8.6 Neut % (Auto) 34.0 Lymph % (Auto) 48.5 H [place] % (Auto) 11.9 H Eos % (Auto) 4.9 H Baso % (Auto) 0.7 Neut # (Auto) 1.4 L Lymph # (Auto) 2.0 [place] # (Auto) 0.5 Eos # (Auto) 0.2 Baso # (Auto) 0.0 WBC Differential . Differential Comment Auto diff final Sodium 142 Potassium 4.6 D Chloride 112 H Carbon Dioxide 22.1 Anion Gap 8 BUN 21 H Creatinine 0.95 Estimated GFR 82 L Random Glucose 83 Calcium 8.2 L Total Bilirubin 0.3 AST 44 H ALT 42 Alkaline Phosphatase 55 Total Creatine Kinase Troponin I Total Protein 6.7 D Albumin 2.7 L D Triglycerides 105 Cholesterol 103 L LDL Cholesterol, Calc 57 HDL Cholesterol 25.1 L Cholesterol/HDL Ratio 4.10 TSH 4.070 H Urine Opiates Screen Ur Barbiturates Screen Ur Amphetamines Screen U Benzodiazepines Scrn Urine Cocaine Screen U Cannabinoids Screen Assessment and Plan - Assessment (1) Chest pain Code(s): R07.9 - Chest pain, unspecified Status: Acute (2) Acute kidney injury Code(s): N17.9 - Acute kidney failure, unspecified Status: Acute - Plan 57-year-old male admitted with complaints of chest pain and syncopal episode Stable, blood pressure is 110s. Renal function back to normal. No dizziness during ambulation. Chest pain r/o ACS Initial troponin neg EKG shows nonspecific T wave changes Patient is currently chest pain free Cardiac enzymes negative, no evidence of ACS. Chest discomfort may have been due to mild exacerbation of COPD. Symptoms resolved after using DuoNeb's. -Supplemental oxygen -Continue with aspirin 81 mg daily -NTG as needed for chest pain. Avoided morphine use secondary to concerns for drug seeking behavior -continuous cardiac monitoring -will not give BB due to recent cocaine use Syncope, suspect secondary to dehydration, polysubstance use Patient reports passing out yesterday while [place] bus stop. similar complaint in February 2018, evaluated by Dr. Nugent, felt likely to be due to cocaine use Echo 03/06 EF 60-65%, mod aortic stenosis -check orthostatic BP measurements-negative so far -monitor on cardiac telemetry -holter monitor in progress, can f/u with Dr. Hernandez for results PAUL, suspect secondary to dehydration Cr 2.23, BUN 32 Patient given 3 L IV fluid in the ED renal fx improved today, back to baseline -Continue with IV fluid hydration -Avoided nephrotoxic agent, NSAIDS, IV contrast -instructed to keep hydrated. Hypokalemia, mild K 3.4 -po repletion ordered -k back to normal. Hypertension, blood pressure stable, 110. 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 Osteoarthritis Hx of ACDF Concern for drug-seeking behavior Patient recently discharged from his pain management clinic due to testing positive for amphetamines in his urine -Tylenol as needed for pain AAA, incidental finding CT chest revealed aneurysmal dilatation of the ascending aorta measuring 4.3 x 4 cm in AP and transverse dimension -Discussed with patient, recommended vascular surgery follow-up as outpatient. Strongly advised on smoking cessation. Homeless -Consulted case management DVT prophylaxis -bilateral SCD/MARIO hose Discussed with patient and significant other at bedside, needs to abstain from drug use. Instructed to follow-up with Dr. Hernandez as outpatient due to recent findings of abdominal aneurysm. Continue with lisinopril to control blood pressure. Encouraged to increase fluid intake. Needs to quit smoking Heart healthy diet Activity as tolerated Follow-up with PCP in 1 week
--- NOTE | 2018-06-24 13:47 | HM ---
Date Performed: 06/22/2018 Time Performed: 19:27:00 HOOKUP DATE: 06/22/18 07:27:00 PM Mon ANALYSIS START TIME: 06/22/2018 7:32:00 PM ANALYSIS END TIME: 06/23/2018 1:58:03 PM PATIENT AGE: 57 PATIENT HEIGHT PATIENT WEIGHT DRUG LIST PATIENT DIAGNOSIS: CHEST PAIN TEST NARRATIVE: The patient's average heart rate was 74 BPM. No episodes of tachycardia wer e noted. No episodes of bradycardia were noted. No pauses exceeding 2.0 seconds were noted. 2 ventricular ectopics, which represented < 1% of the total beat count, were noted. The highest vent ricular ectopic frequency occurred from 03:00 AM to 04:00 AM Tue. During this time 1 VE(s) occurred. Ventricular ectopics were observed as 2 isolated beat(s) only. No couplets or runs were noted. 7 supraventricular ectopics, which represented < 1% of the total beat count, were noted. The highes t supraventricular ectopic frequency occurred from 08:00 AM to 09:00 AM Tue. During this time 2 SVE( s) occurred. No episodes of ST depression (defined as -1.0 mm or more) were noted in channel 1. No episodes of ST depression (defined as -1.0 mm or more) were noted in channel 2. No episodes of ST depression (defined as -1.0 mm or more) were noted in channel 3. TEST INTERPRETATION: Sinus rhythm Rare ectopy Signed by : Yaya bernabe
== END 2018-06-23 15:00 | disposition home or self-care (01) ==
LOC: NEDA 10:40 → NEPC 10:40 → NEPFCDU 15:19
PROVIDERS: ADMIT Hospitalist; ATTEND Hospitalist
DX: R51 Headache; K74.60 Unspecified cirrhosis of liver; R63.6 Underweight; F17.210 Nicotine dependence, cigarettes, uncomplicated; N17.9 Acute kidney failure, unspecified; Z90.49 Acquired absence of other specified parts of digestive tract; F15.10 Other stimulant abuse, uncomplicated; R64 Cachexia; R55 Syncope and collapse; I35.0 Nonrheumatic aortic (valve) stenosis; I10 Essential (primary) hypertension; Z79.82 Long term (current) use of aspirin; E87.6 Hypokalemia; J44.9 Chronic obstructive pulmonary disease, unspecified; B17.10 Acute hepatitis C without hepatic coma; Z82.49 Family history of ischemic heart disease and other diseases of the circulatory system; Z59.0 Homelessness; I71.4 Abdominal aortic aneurysm, without rupture; Z98.1 Arthrodesis status; R07.9 Chest pain, unspecified; F20.9 Schizophrenia, unspecified; F14.10 Cocaine abuse, uncomplicated; Z90.2 Acquired absence of lung [part of]; Z85.118 Personal history of other malignant neoplasm of bronchus and lung